=== PATIENT | female | born 1955 | race Caucasian/White ===

== ENCOUNTER 2020-02-29 10:57 | Outpatient (REF) | payer MEDICARE, SELFPAY ==
[2020-02-29 14:13] LABS: Estimated Average Glucose 154 mg/dL
[2020-02-29 14:29] LABS: Alanine Aminotransferase 70 U/L (0-31); Anion Gap 16 (12-20); Aspartate Amino Transferase 68 U/L (5-31); Blood Urea Nitrogen 12 mg/dL (9-16); Calcium 9.9 mg/dL (8.4-10.2); Carbon Dioxide 29 mmol/L (22-29); Chloride 102 mmol/L (96-108); Cholesterol 245 mg/dL; Estimated Glomerular Filt Rate > 60; Glucose Fasting 151 mg/dL (60-99); HDL Cholesterol 85 mg/dL; LDL Cholesterol Calculated 133 mg/dl; Potassium 5.1 mmol/l (3.3-5.1); Sodium 142 mmol/L (135-145); Triglycerides 138 mg/dL
[2020-02-29 14:49] LABS: Vitamin D 25-OH Total 64.9 ng/mL (>30)
[2020-02-29 15:21] LABS: Creatinine Urine 85.09 mg/dL; Microalbum/Creatinine Ratio Ur 42.3 ug/mg cr
== END 2020-02-29 10:58 | disposition home or self-care (01) ==
LOC: HO.HMGCLDS 10:57
PROVIDERS: PCP Internal Medicine; Visit Provider Internal Medicine
DX: I10 Essential (primary) hypertension (principal); E11.29 Type 2 diabetes mellitus with other diabetic kidney complication; E78.2 Mixed hyperlipidemia; R80.9 Proteinuria, unspecified; Z78.0 Asymptomatic menopausal state
CPT/HCPCS: 36415; 80048; 80061; 82043; 82306; 83036; 84450; 84460

== ENCOUNTER 2020-06-12 10:46 | Outpatient (REF) | payer MEDICARE, OTHER, SELFPAY ==
[2020-06-12 14:32] LABS: Estimated Average Glucose 157 mg/dL; Hemoglobin A1c % 7.1 %
[2020-06-12 14:38] LABS: Alanine Aminotransferase 56 U/L (0-31); Anion Gap 17 (12-20); Aspartate Amino Transferase 56 U/L (5-31); Blood Urea Nitrogen 13 mg/dL (9-16); Calcium 9.8 mg/dL (8.4-10.2); Carbon Dioxide 26 mmol/L (22-29); Chloride 100 mmol/L (96-108); Cholesterol 251 mg/dL; Estimated Glomerular Filt Rate > 60; Glucose Fasting 171 mg/dL (60-99); HDL Cholesterol 76 mg/dL; LDL Cholesterol Calculated 133 mg/dl; Potassium 4.4 mmol/L (3.3-5.1); Sodium 139 mmol/L (135-145); Triglycerides 211 mg/dL
[2020-06-12 15:01] LABS: Creatinine Urine 128.54 mg/dL; Microalbum/Creatinine Ratio Ur 68.4 ug/mg cr; Vitamin D 25-OH Total 69.6 ng/mL (>30)
== END 2020-06-12 10:47 | disposition home or self-care (01) ==
LOC: HO.HMGCLDS 10:46
PROVIDERS: PCP Internal Medicine; Visit Provider Internal Medicine
DX: E11.9 Type 2 diabetes mellitus without complications (principal); E78.5 Hyperlipidemia, unspecified; I10 Essential (primary) hypertension; Z78.0 Asymptomatic menopausal state
CPT/HCPCS: 36415; 80048; 80061; 82043; 82306; 83036; 84450; 84460

== ENCOUNTER → 2020-07-08 15:12 | Outpatient (BNVA) | payer MEDICARE, OTHER, SELFPAY | PROVIDERS: Visit Provider Obstetrics & Gynecology | DX: N39.3 Stress incontinence (female) (male) (principal) | CPT/HCPCS: 99202 ==

== ENCOUNTER 2020-10-20 16:13 | Outpatient (REF) | payer MEDICARE, OTHER, SELFPAY ==
--- NOTE | ~2020-10-20 | MM_ITS ---
EXAMINATION: MM SCREENING DIGITAL BREAST TOMOSYNTHESIS, BILATERAL CLINICAL INFORMATION: Screening. Asymptomatic. Left breast cancer 2007. COMPARISON: Mammography: 10/15/2019, 08/23/2017, 02/06/2016, 11/25/2014, 11/08/2014 TECHNIQUE: Digital breast tomosynthesis is performed in both the craniocaudal and mediolateral oblique views along with computer-aided detection (CAD). Synthesized 2D images are generated from the tomosynthesis. Additional exaggerated right CC view is provided. FINDINGS: There are scattered areas of fibroglandular density (ACR BI-RADS breast composition Category b). There are no significant masses, abnormal calcifications, or other abnormalities. There are scattered bilateral ductal secretory calcifications, slightly increased in number over time. Parenchymal pattern is similar to prior exam. There is stable nodularity central 5:00 right breast. No developing density. The axilla are unremarkable. MM/MM tomosynthesis screening BI IMPRESSION: No significant changes from prior studies. ASSESSMENT: BI-RADS 2: Benign RECOMMENDATION: Routine annual mammography screening. This patient's information was entered into a reminder system with a target due date for their next mammogram.
== END 2020-10-20 16:14 | disposition home or self-care (01) ==
LOC: HO.MAMMO 16:13
PROVIDERS: PCP Internal Medicine; Visit Provider Internal Medicine
DX: Z12.31 Encounter for screening mammogram for malignant neoplasm of breast (principal)
CPT/HCPCS: 77063; 77067

== ENCOUNTER 2020-11-22 16:16 | Outpatient (REF) | payer MEDICARE, OTHER, SELFPAY ==
[2020-11-22 16:28] LABS: Appearance Urine CLEAR; Color Urine YELLOW; Glucose Urine UA 500 MG/DL (NEG); Leukocyte Esterase Urine NEG (NEG); Nitrite Urine NEG (NEG); PH 5.5 (5.0-8.0); Specific Gravity - Urine 1.025 (1.005-1.025); UACC Culture Trigger NO; Urine Blood NEG (NEG); Urine Ketones NEG (NEG); Urine Protein 1+ MG/DL (NEG-TRACE)
[2020-11-22 16:42] LABS: Squamous Epithelial Cell Urine 2+ /LPF; UACC CULT YES
[2020-11-22 16:43] LABS: Bacteria Urine 2+ /LPF; RBC Urine 0-2 /HPF (0); WBC Clumps Urine NOTED
== END 2020-11-22 16:17 | disposition home or self-care (01) ==
LOC: HO.LNP 16:16
PROVIDERS: Visit Provider Physician Assistant Medical
DX: N20.0 Calculus of kidney (principal); R30.0 Dysuria
CPT/HCPCS: 81001; 87086; 87088; 87186

== ENCOUNTER 2021-03-18 08:40 | Outpatient (REF) | payer MEDICARE, OTHER, SELFPAY ==
[2021-03-18 11:34] LABS: Appearance Urine TURBID; Color Urine YELLOW; Glucose Urine UA NEG (NEG); Leukocyte Esterase Urine NEG (NEG); Nitrite Urine POS (NEG); PH 5.5 (5.0-8.0); Specific Gravity - Urine >= 1.030 (1.005-1.025); UACC Culture Trigger YES; Urine Blood NEG (NEG); Urine Ketones NEG (NEG); Urine Protein NEG (NEG-TRACE)
[2021-03-18 11:47] LABS: Alanine Aminotransferase 45 U/L (0-31); Anion Gap 16 (12-20); Aspartate Amino Transferase 39 U/L (5-31); Blood Urea Nitrogen 17 mg/dL (9-16); Calcium 10.2 mg/dL (8.4-10.2); Carbon Dioxide 27 mmol/L (22-29); Chloride 102 mmol/L (96-108); Cholesterol 212 mg/dL; Estimated Glomerular Filt Rate > 60; Glucose Fasting 158 mg/dL (60-99); HDL Cholesterol 62 mg/dL; LDL Cholesterol Calculated 108 mg/dl; Sodium 140 mmol/L (135-145); Triglycerides 210 mg/dL
[2021-03-18 11:50] LABS: Estimated Average Glucose 143 mg/dL; Hemoglobin A1c % 6.6 %
[2021-03-18 12:03] LABS: RBC Urine 0 /HPF (0); Squamous Epithelial Cell Urine TRACE /LPF; WBC Urine 0 /HPF (0-4)
[2021-03-18 12:04] LABS: Amorphous Sediment Urine 4+ /LPF
== END 2021-03-18 08:41 | disposition home or self-care (01) ==
LOC: HO.HMGCLDS 08:40
PROVIDERS: Physician Assistant Medical; PCP Internal Medicine; Visit Provider Internal Medicine
DX: E11.65 Type 2 diabetes mellitus with hyperglycemia (principal); E78.5 Hyperlipidemia, unspecified; I10 Essential (primary) hypertension; N20.0 Calculus of kidney
CPT/HCPCS: 36415; 80048; 80061; 81001; 82043; 83036; 84450; 84460; 87086; 87088; 87186

== ENCOUNTER 2021-05-13 10:26 | Outpatient (REF) | payer MEDICARE, OTHER, SELFPAY ==
--- NOTE | ~2021-05-13 | XR_ITS ---
EXAMINATION: XR LUMBOSACRAL SPINE WITH OBLIQUES CLINICAL INFORMATION: Low back pain COMPARISON: Previous x-ray July 2008 TECHNIQUE: AP, both oblique, and lateral views of the lumbar spine. Lateral view of the lumbosacral junction. FINDINGS: Bone alignment is normal. No fracture or dislocation is seen. There is degenerative disc disease at L5-S1. There is lower lumbar spine facet arthritis. No pars defect is seen. There is evidence of atherosclerotic disease. XR/XR lumbar spine 4V min IMPRESSION: Degenerative disc disease at L5-S1 and lower lumbar spine facet arthritis.
--- NOTE | ~2021-05-13 | XR_ITS ---
EXAMINATION: XR BILATERAL HIPS CLINICAL INFORMATION: Right hip pain COMPARISON: Previous x-ray August TECHNIQUE: 2 views views of each hip were obtained. FINDINGS: Right: Bone alignment is normal. No fracture or dislocation is seen. There is arthritis at the right hip joint with joint space narrowing and osteophyte formation. Soft tissues are unremarkable. Left hip: Bone alignment is normal. No fracture or dislocation is seen. The joint space is normal. Soft tissues are normal XR/XR hips SANDRA min 3V IMPRESSION: Right hip arthritis. Normal left hip.
[2021-05-13 11:59] LABS: Estimated Average Glucose 148 mg/dL; Hemoglobin A1c % 6.8 %
[2021-05-13 12:18] LABS: Alanine Aminotransferase 72 U/L (0-31); Anion Gap 17 (12-20); Aspartate Amino Transferase 64 U/L (5-31); Blood Urea Nitrogen 11 mg/dL (9-16); Calcium 9.9 mg/dL (8.4-10.2); Carbon Dioxide 25 mmol/L (22-29); Chloride 102 mmol/L (96-108); Cholesterol 182 mg/dL; Estimated Glomerular Filt Rate > 60; Glucose Fasting 148 mg/dL (60-99); HDL Cholesterol 65 mg/dL; LDL Cholesterol Calculated 91 mg/dl; Potassium 4.6 mmol/L (3.3-5.1); Sodium 139 mmol/L (135-145); Triglycerides 134 mg/dL
[2021-05-14 14:27] LABS: Vitamin D 25-OH Total 48.1 ng/mL (>30)
== END 2021-05-13 10:27 | disposition home or self-care (01) ==
LOC: HO.HMGCX 10:26
PROVIDERS: PCP Internal Medicine; Visit Provider Internal Medicine
DX: M54.50 Low back pain, unspecified (principal); M25.551 Pain in right hip; N95.9 Unspecified menopausal and perimenopausal disorder; G89.29 Other chronic pain; I10 Essential (primary) hypertension; E78.5 Hyperlipidemia, unspecified; E11.65 Type 2 diabetes mellitus with hyperglycemia
CPT/HCPCS: 36415; 72110; 73522; 80048; 80061; 82306; 83036; 84450; 84460

== ENCOUNTER 2021-05-21 08:39 | Outpatient (REF) | payer MEDICARE, OTHER, SELFPAY ==
--- NOTE | ~2021-05-21 | XR_ITS ---
EXAMINATION: XR PELVIS CLINICAL INFORMATION: Pain. COMPARISON: Radiographs dated 05/13/2001. TECHNIQUE: AP view of the pelvis. FINDINGS: There is bony demineralization. There is moderately severe narrowing of the superior right acetabular joint space, with articular surface irregularity, subchondral sclerosis and peripheral osteophyte formation. The left acetabular joint space shows mild medial narrowing of narrowing and mild subchondral sclerosis. There is slight peripheral osteophyte formation of the left acetabular roof. The femoral heads are smooth. There is no fracture or dislocation. The bilateral sacroiliac joints appear intact. The pubic symphysis is intact. There are pelvic phleboliths. XR/XR pelvis 1-2V IMPRESSION: There are degenerative changes of the bilateral hips, moderately severe on the right and mild on the left. No fracture or dislocation is seen.
== END 2021-05-21 08:40 | disposition home or self-care (01) ==
LOC: HO.HOSX 08:39
PROVIDERS: Visit Provider Orthopaedic Surgery
DX: M16.11 Unilateral primary osteoarthritis, right hip (principal); E11.9 Type 2 diabetes mellitus without complications
CPT/HCPCS: 72170; 99202

== ENCOUNTER → 2021-07-14 12:43 | Outpatient (BNVA) | payer MEDICARE, OTHER, SELFPAY | PROVIDERS: PCP Internal Medicine; Visit Provider Orthopaedic Surgery | DX: Z13.89 Encounter for screening for other disorder (principal) ==

== ENCOUNTER 2021-07-16 14:11 | Outpatient (REF) | payer MEDICARE, OTHER, SELFPAY ==
[2021-07-16 16:38] LABS: MANUAL DIFF FLAG NO
[2021-07-16 16:42] LABS: Basophils Absolute Auto 0.1 X10*3/uL (0.0-0.2); Basophils Percent Auto 0.8 % (0-2); Eosinophils Absolute Auto 0.2 X10*3/uL (0.0-0.4); Eosinophils Percent Auto 1.4 % (0-4); Hematocrit 44.2 % (37.0-47.0); Hemoglobin 14.5 g/dl (12.0-16.0); Imm Gran Abs Auto 0.07 X10*3/uL (0.00-0.03); Imm Gran Pct Auto 0.5 % (0.0-0.4); Lymphocytes Absolute Auto 2.8 X10*3/uL (1.2-4.9); Lymphocytes Percent Auto 20.5 % (20-40); Mean Corpuscular HGB Conc 32.8 g/dl (31.0-35.0); Mean Corpuscular Hemoglobin 31.8 pg (27.0-33.0); Mean Corpuscular Volume 96.9 fL (80.0-98.0); Mean Platelet Volume 10.5 fL (9.4-12.3); Monocytes Absolute Auto 1.2 X10*3/uL (0.1-1.2); Monocytes Percent Auto 8.5 % (2-11); Neutrophils Absolute Auto 9.5 x10*3/uL (2.0-8.3); Neutrophils Percent Auto 68.3 % (45-73); Platelet Count 425 X10*3/uL (160-400); Red Blood Count 4.56 X10*6/uL (4.20-5.50); Red Cell Distribution Width 13.2 % (11.0-16.0); White Blood Count 13.9 X10*3/uL (4.8-10.8)
[2021-07-16 16:52] LABS: Anion Gap 17 (12-20); Blood Urea Nitrogen 13 mg/dL (9-16); Calcium 10.3 mg/dL (8.4-10.2); Carbon Dioxide 25 mmol/L (22-29); Chloride 102 mmol/L (96-108); Estimated Glomerular Filt Rate > 60; Glucose Random 183 mg/dL (60-115); Potassium 4.3 mmol/L (3.3-5.1); Sodium 140 mmol/L (135-145)
== END 2021-07-16 14:12 | disposition home or self-care (01) ==
LOC: HO.HMGCLDS 14:11
PROVIDERS: PCP Internal Medicine; Visit Provider Orthopaedic Surgery
DX: Z01.812 Encounter for preprocedural laboratory examination (principal)
CPT/HCPCS: 36415; 80048; 85025

== ENCOUNTER 2021-07-28 | Outpatient (REF) | payer MEDICARE, OTHER, SELFPAY ==
[2021-07-28 12:11] VITALS: BP 147/77; PULSE 86; RESP 16; O2SAT 96; BMI 33.8
--- NOTE | 2021-07-28 12:37 | P.CONAN_ITS ---
HPI - Anesthesia Eval Consult details Narrative: 65yo F for Right Hip Total Replacement Cardiac referral by PCP for new LBBB PMFSH Active Problems Active Problems: All Active Problems (Updated 07/28/21 @ 12:31 by Krystyna Patino, RN) Cystocele (Acute) WINDY (stress urinary incontinence, female) (Acute) Nephrolithiasis (Acute) Left bundle branch block (LBBB) (Acute) Pre-operative cardiovascular examination (Acute) Arthritis of right hip (Acute) Prolapse of female pelvic organs (Acute) Wrist fracture, right (Acute) Type 2 diabetes mellitus without complication, with no history of insulin use (Acute) Essential hypertension (Acute) Glaucoma (Acute) Pulmonary nodule, right (Acute) Lobular breast cancer (Acute) Dyslipidemia (Acute) GERD (gastroesophageal reflux disease) (Acute) Past Medical History Medical History (Updated 07/28/21 @ 12:49 by Krystyna Patino, RN) Arthritis of right hip Diabetes mellitus with hyperglycemia, without long-term current use of insulin Dyslipidemia Dysuria Encounter for annual wellness visit (AWV) in Medicare patient Essential hypertension GERD (gastroesophageal reflux disease) Glaucoma Left bundle branch block (LBBB) Lobular breast cancer PONV (postoperative nausea and vomiting) Posterior vitreous detachment Pre-operative cardiovascular examination Prolapse of female pelvic organs Pulmonary nodule, right Seasonal allergies Type 2 diabetes mellitus without complication, with no history of insulin use Wrist fracture, right Family History Family History Father Diabetes mellitus Sister Lung cancer Family history of problems with anesthesia: No Surgical History Surgical History (Updated 07/28/21 @ 12:03 by Krystyna Patino RN) H/O colectomy History of appendectomy History of carpal tunnel release History of tubal ligation Hx of colonoscopy S/P breast lumpectomy History of Problems with Anesthesia: Yes (PONV) Social History Social History Housing: House Housing Other:: Trailer Are you a primary manager critical care unit to a significant other at home: No Do you presently have visiting nurse or other home services: No Alcohol intake: current Alcohol intake frequency: holidays/special occasions only Patient Tobacco Use Status: Current everyday Tobacco user Tobacco use type: Cigarette Cigarettes Per Day: 5 Years Smoked: 40 e-Cigarette/Vaping Use: Never Used Second Hand Smoke Exposure: Yes ( but he goes outside to smoke) service: No Current occupational status: retired Gender identity: Female Cognitive needs: No Hearing needs: No Vision needs: No Narrative Narrative: No recent illness No CP/SOB within activity very limited by pain Meds Allergies Allergy/AdvReac Type Severity Reaction Status Date / Time ibuprofen [IBUPROFEN] Allergy Severe HIVES, Verified 07/28/21 12:04 vomiting blood, itchiness metronidazole [Flagyl] Allergy Severe hives, Verified 07/28/21 12:04 itching morphine [MORPHINE] Allergy Severe JITTERY, Verified 07/28/21 12:04 tremors, hives, rash adhesive tape [Adhesive Tape] Allergy Mild RASH Verified 07/28/21 12:04 flaxseed [FLAXSEED] Allergy Mild FELT Verified 07/28/21 12:04 JITTERY latex [Latex] Allergy Mild RASH Verified 07/28/21 12:04 Penicillins Allergy Mild RASH/THROAT Verified 07/28/21 12:04 SWELLING Heparin (Porcine) in NaCl Allergy Severe hives, Uncoded 07/28/21 12:04 itchy Home Medications Medication Instructions Recorded Confirmed Last Taken Type aspirin 81 mg tablet,delayed 81 mg PO DAILY 06/13/20 07/28/21 Unknown History release (Adult Low Dose Aspirin) metformin 500 mg tablet 500 mg PO BID tab 07/27/21 07/28/21 Unknown History atorvastatin 10 mg tablet 10 mg PO BEDTIME 07/28/21 07/28/21 Unknown History gabapentin 300 mg capsule 300 mg PO BEDTIME 07/28/21 07/28/21 Unknown History omeprazole 20 mg capsule,delayed 20 mg PO DAILY 07/28/21 07/28/21 Unknown History release Exam Exam Date and Time: July 28, 2021 1237 Height,Weight and Vital Signs: Height 5 ft 2 in Weight 83.915 kg Last Vital Signs Pulse 86 07/28/21 12:11 Resp 16 07/28/21 12:11 BP 147/77 H 07/28/21 12:11 Pulse Ox 96 07/28/21 12:11 Pertinent Lab Results Pertinent Lab Results: Laboratory Tests 07/16/21 07/16/21 15:20 15:20 WBC 13.9 H Hgb 14.5 Hct 44.2 Plt Count 425 H Sodium 140 Potassium 4.3 Chloride 102 Carbon Dioxide 25 BUN 13 Creatinine 0.80 Narrative Narrative: EKG 07/2021 NSR @ 91 LBBB Airway Mallampati Class: II TM Dist: >3cm Neck ROM: Full Denture: Upper and Lower Heart: RRR Lungs: CTAB Assessment and Plan Assessment Anesthesia Assessment: Anesthesia Plan Discussed, Smoking Cess. Discussed and PAT Visit Final Anesthetic Review Family History of Problems with Anesthesia: No History of Problems with Anesthesia: Yes (PONV)
[2021-07-28 14:40] LABS: MRSA Nasal PCR NEGATIVE (Negative); SA Nasal PCR NEGATIVE (Negative)
== END 2021-07-28 00:01 ==
LOC: HO.PAT
PROVIDERS: Nurse Practitioner; PCP Internal Medicine; Visit Provider Orthopaedic Surgery
DX: Z01.818 Encounter for other preprocedural examination (principal); M16.11 Unilateral primary osteoarthritis, right hip
CPT/HCPCS: 86850; 86900; 86901; 87640; 87641

== ENCOUNTER 2021-08-18 11:15 | Outpatient (REF) | payer MEDICARE, OTHER, SELFPAY ==
[2021-08-18 14:22] LABS: Alanine Aminotransferase 47 U/L (0-31); Aspartate Amino Transferase 43 U/L (5-31); Cholesterol 199 mg/dL; HDL Cholesterol 84 mg/dL; LDL Cholesterol Calculated 86 mg/dl; Triglycerides 149 mg/dL
== END 2021-08-18 11:16 | disposition home or self-care (01) ==
LOC: HO.HMGCLDS 11:15
PROVIDERS: Visit Provider Internal Medicine
DX: E11.9 Type 2 diabetes mellitus without complications (principal); E78.5 Hyperlipidemia, unspecified; I10 Essential (primary) hypertension
CPT/HCPCS: 36415; 80061; 84450; 84460

== ENCOUNTER → 2021-08-26 08:35 | Outpatient (BNVA) | payer MEDICARE, OTHER, SELFPAY | PROVIDERS: PCP Internal Medicine; Referring Provider Internal Medicine; Visit Provider Internal Medicine Cardiovascular Disease | DX: Z01.810 Encounter for preprocedural cardiovascular examination (principal); I44.7 Left bundle-branch block, unspecified | CPT/HCPCS: 99202 ==

== ENCOUNTER 2021-08-27 08:30 | Outpatient (RCR) | payer MEDICARE, OTHER, SELFPAY | END 2022-01-18 11:54 | disposition home or self-care (01) | LOC: HO.PT 08:30 | PROVIDERS: Visit Provider Physician Assistant | DX: Z96.641 Presence of right artificial hip joint (principal) ==

== ENCOUNTER → 2021-09-01 07:26 | Outpatient (REF) | payer MEDICARE, OTHER, SELFPAY ==
--- NOTE | ~2021-09-01 | NM_ITS ---
Myocardial perfusion study Indication: Preoperative cardiovascular risk stratification with left bundle branch block Technique: The patient was brought in for a Lexiscan perfusion study on 09/01/2021. Patient performed low-level exercise and was injected 0.4 mg of Lexiscan intravenously. Within a minute of injection, 30 mCi of sestamibi was given intravenously. Images were obtained using the SPECT gamma camera interlaced with the gating device. Images were obtained in supine position. Resting perfusion study was performed on 09/02/2021. Patient was administered 30 mCi of sestamibi intravenously at rest. Images were then obtained in supine position. Images obtained with and without CT attenuation. Total DLP 75 mGy-cm. Images were processed with the software and compared side to side in short axis, horizontal long axis and vertical long axis views. Findings: The stress perfusion study showed non attenuated images show normal uptake of radiotracer in all segments of LV myocardium. Attenuation corrected images show moderately reduced uptake in the apex and mildly reduced uptake septum of the LV myocardium. Remainder of the LV myocardium is normally perfused.. The gated study shows mildly reduced LV systolic function with calculated LVEF of 47%. LV cavity is mildly dilated size. The gated study shows normal wall thickening and contraction of segments. Resting study shows non attenuated images show mildly reduced uptake in the apex of the LV myocardium. Gating at rest reveals normal systolic wall motion with ejection fraction at greater than 45 %. The findings are consistent with likely normal myocardial perfusion. NM/NM sarah perf SPECT rest & str Impression: 1. Myocardial perfusion imaging study shows likely normal myocardial perfusion 2. Gated LVEF is 47% 3. Transient ischemic dilatation not present EKG is nondiagnostic for ischemia
--- NOTE | 2021-09-01 07:34 | CA_ITS ---
Acquisition Time: 2021-09-01 08:21:38 Total Exercise Time: 00:02:00 Test Indications: Abnormal ECG Medications: ATORVASTATIN DILTIAZEM GABAPENTIN LISINOPRIL METFORMIN OMEPRAZOLE Protocol: LEXISCAN Max HR: 112 BPM 73% of Pred: 153 BPM Max BP: 130/080 mmHG Max Work Load: 1.0 METS Pharmacological stress test using Lexiscan while sitting. Pt tolerated well, Denies any CP, mild SOB that resolves in recovery. EKG with LBBB at baseline non diagnostic for ischemia. Nuclear images to follow. Normotensive response to lore. Test reviewed with Dr. Isaacs. Referred By: Flako Isaacs Overread By: Taylor Pederson NP
--- NOTE | 2021-09-01 07:34 | CA_ITS ---
Transthoracic Echocardiogram Patient (Last, First, Middle): Kaila Hampton L Gender: Female Date of : 1955 Age: 66 Procedure Date: 09/01/2021 Procedure Type: Transthoracic Echocardiogram Location: OP Height: 157.48 cm Weight: 83.01 kg BSA: 1.84 m2 Heart Rate: 90 bpm BP: 120 / 70 mmHg Glass Sagger: NICOLE Referring MD: Flako Isaacs MD Job Service Specialist: Flako Isaacs MD Symptoms: Z01.810 - Encounter for preprocedural cardiovascular examination Study Quality: Adequate ECG Rhythm: Sinus Conclusions: - 1. Mildly reduced LV ejection fraction 45-50% with impaired relaxation filling pattern 2. Cardiac valvular Doppler within normal limits 3. No gross pericardial effusion Findings Left Ventricle Normal left ventricular cavity size. There is normal left ventricular wall thickness. The left ventricular systolic function is mildly decreased. The visually estimated ejection fraction is between 45-50%. There is paradoxical septal motion consistent with a left bundle branch block. Spectral Doppler is indicative of an impaired relaxation filling pattern. E/E prime ratio is between 8 and 15 consistent with indeterminate filling pressures. Right Ventricle Normal right ventricular cavity size and systolic function. Atria The left atrium is normal in size. There is no evidence of interatrial shunt. The right atrium was not well visualized. Aortic Valve The aortic valve was not well visualized. There is no aortic valve stenosis. There is no aortic valve regurgitation. Mitral Valve Likely normal mitral valve structure and function. There is trace mitral valve regurgitation. There is no mitral valve stenosis. Pulmonic Valve The pulmonic valve was not well visualized. Tricuspid Valve Likely normal tricuspid valve structure and function. Tricuspid regurgitation envelope is inadequate for calculation of right ventricular systolic pressure. Great Vessels All visible segments of the aorta are normal in size. The pulmonary artery was not well visualized. Venous The inferior vena cava is normal in size. Pericardium/Pleural There is no evidence of pericardial effusion. Prior Study Comparison No prior study available for comparison. Measurements 2D Linear Measurements IVSd: 1.07 0.6-0.9/0.6-1.0 cm LVIDd: 4.87 3.9-5.3/4.2-5.9 cm LVIDd Index: 2.65 2.4-3.2/2.2-3.1 cm/m2 LVIDs: 4.00 2.0-3.6 cm LVPWd: 0.66 0.7-1.1 cm LA Diam: 3.60 2.7-3.8/3.0-4.0 cm LAIDs Index: 1.96 1.5-2.3 cm/m2 LV Mass: 179.28 67-162/88-224 g LV Mass Index: 97.44 43-95/49-115 g/m2 LVOT Diam: 2.10 3.0+(-)1.3 cm 2D Systolic Function EF 4C: 26.80 >55% EF 2C: 37.60 >55% Mitral Valve MV Pk E: 0.59 MV PK A: 1.02 MV Decel Time: 106.00 E/A: 0.60 E'Lateral: 4.90 E'Medial: 2.83 E/E' Med: 20.90 E/E' Lat: 12.10 PHT: 31.00 MVA PHT: 7.10 Decel [place]: 5.58 Aortic Valve AoV Pk Kelvin: 1.50 AoV Mn Kelvin: 1.07 AoV VTI: 0.27 AoV Pk Grad: 9.00 Aov Mn Grad: 5.00 SARAH Cont.VTI: 1.73 LVOT LVOT Pk Kelvin: 0.83 LVOT Mn Kelvin: 0.55 LVOT VTI: 0.13 LVOT Pk Grad: 3.00 LVOT Mn Grad: 1.00 LVOT Diam: 2.10 LVOT Area: 3.46 Diastolic Function MV Pk E: 0.59 MV Pk A: 1.02 E/A: 0.60 E'Medial: 2.83 E/E' Med: 20.90 E' Laterial: 4.90 E/E' Lat: 12.10 Right Ventricle TAPSE (mm): 13.10 TVS' Kelvin: 7.60 Tricuspid Valve RA Press: 3.00 Great Vessels Aorta Sinus of Valsalva: 3.10 2.0-3.5 cm Ao Asc: 2.90 2.1-3.4 cm Pulmonary Valve PV Pk Kelvin: 1.28 Peak PV Grad: 7.00 Updated in Other Vendor System with Status of Final Flako Isaacs MD electronically signed on 09/02/2021 1:36:29 PM with status of Final
== END ==
LOC: HO.CARD 07:26
PROVIDERS: PCP Internal Medicine; Visit Provider Internal Medicine Cardiovascular Disease
DX: Z01.810 Encounter for preprocedural cardiovascular examination (principal)
CPT/HCPCS: 78452; 93017; 93306; A9500; J0280; J2785

== ENCOUNTER → 2021-10-05 09:00 | Outpatient (BNVA) | payer MEDICARE, OTHER, SELFPAY | PROVIDERS: PCP Internal Medicine; Visit Provider Physician Assistant | DX: M16.11 Unilateral primary osteoarthritis, right hip (principal) | CPT/HCPCS: 99212; J2250; J3010 ==

== ENCOUNTER 2021-10-06 07:48 | Inpatient (IN) | payer MEDICARE, OTHER, SELFPAY ==
--- NOTE | 2021-10-05 08:51 | P.CONAN_ITS ---
Documented by User: Natasha Gongora NP 10/05/21 08:59 HPI - Anesthesia Eval Consult details Narrative: 66yo F for Right Hip Total Replacement Cardiac optimized (had abn EKG with PCP) PONV PMFSH Active Problems Active Problems: All Active Problems (Updated 08/20/21 @ 17:59 by Nikki Alberto MD) Cystocele (Acute) WINDY (stress urinary incontinence, female) (Acute) Nephrolithiasis (Acute) Left bundle branch block (LBBB) (Acute) Pre-operative cardiovascular examination (Acute) Arthritis of right hip (Acute) Prolapse of female pelvic organs (Acute) Wrist fracture, right (Acute) Type 2 diabetes mellitus without complication, with no history of insulin use (Acute) Essential hypertension (Acute) Pulmonary nodule, right (Acute) Lobular breast cancer (Acute) Dyslipidemia (Acute) GERD (gastroesophageal reflux disease) (Acute) Past Medical History Medical History Arthritis of right hip Diabetes mellitus with hyperglycemia, without long-term current use of insulin Dyslipidemia Essential hypertension GERD (gastroesophageal reflux disease) Glaucoma Left bundle branch block (LBBB) Lobular breast cancer PONV (postoperative nausea and vomiting) Posterior vitreous detachment Pre-operative cardiovascular examination Prolapse of female pelvic organs Pulmonary nodule, right Seasonal allergies Type 2 diabetes mellitus without complication, with no history of insulin use Wrist fracture, right Family History Family History Father Diabetes mellitus Sister Lung cancer Family history of problems with anesthesia: No Surgical History Surgical History H/O colectomy History of appendectomy History of carpal tunnel release History of tubal ligation Hx of colonoscopy S/P breast lumpectomy History of Problems with Anesthesia: Yes Social History Social History Household Members: None Housing: House Housing Other:: Trailer Are you a primary geriatric personal care aide to a significant other at home: No Do you presently have visiting nurse or other home services: No Alcohol intake: current Alcohol intake frequency: holidays/special occasions only Patient Tobacco Use Status: Current everyday Tobacco user Tobacco use type: Cigarette Cigarettes Per Day: 5.0 Years Smoked: 40 Smoked in Last 30 Days: Yes e-Cigarette/Vaping Use: Never Used Patient Interested in Nicotine Replacement: No Patient Given Instructions on How to Stop Smoking: No Second Hand Smoke Exposure: Yes Use of substances other than those prescribed or required for medical reasons: No Currently Displaying Signs/Symptoms of Drug Intoxication Withdrawal: No Have you been hit, kicked, punched, or otherwise hurt by someone within the past year? If so, by whom?: No Do you feel safe in your current relationship?: Yes Is there a partner from a previous relationship who is making you feel unsafe now?: No Are you made to feel afraid or neglected: No Are you DNR?: No Advance Directives: No Advance Directives Information Provided: No Advance Directives on File: No Do you have thoughts of harming others: None Do you have a plan to hurt others: No Plan Recently lost weight without trying: Yes How much weight loss: 2-13 pounds Eating poorly because of decreased appetite: No Nutrition screen score: 3 Nutrition Risks: No Nutritional Risk Patient : No : No Poor oral hygiene: No service: No Current occupational status: retired Gender identity: Female Cognitive needs: No Hearing needs: No Vision needs: No Meds Allergies Allergy/AdvReac Type Severity Reaction Status Date / Time ibuprofen [IBUPROFEN] Allergy Severe HIVES, Verified 10/05/21 09:30 vomiting blood, itchiness metronidazole [Flagyl] Allergy Severe hives, Verified 10/05/21 09:30 itching morphine [MORPHINE] Allergy Severe JITTERY, Verified 10/05/21 09:30 tremors, hives, rash adhesive tape [Adhesive Tape] Allergy Mild RASH Verified 10/05/21 09:30 flaxseed [FLAXSEED] Allergy Mild FELT Verified 10/05/21 09:30 JITTERY latex [Latex] Allergy Mild RASH Verified 10/05/21 09:30 Penicillins Allergy Mild RASH/THROAT Verified 10/05/21 09:30 SWELLING Heparin (Porcine) in NaCl Allergy Severe hives, Uncoded 10/05/21 09:30 itchy Home Medications Medication Instructions Recorded Confirmed Last Taken Type metformin 500 mg tablet 500 mg PO BID 07/27/21 10/06/21 10/05/21 History atorvastatin 10 mg tablet 10 mg PO BEDTIME 07/28/21 10/06/21 10/05/21 History gabapentin 300 mg capsule 300 mg PO BEDTIME 07/28/21 10/06/21 10/05/21 History omeprazole 20 mg capsule,delayed 20 mg PO DAILY@0630 07/28/21 10/06/21 10/06/21 History release diltiazem HCl 180 mg 180 mg PO DAILY 10/06/21 10/06/21 10/06/21 History capsule,extended release 24 hr, controlled (DILT-XR) lisinopril 5 mg tablet 5 mg PO DAILY 10/06/21 10/06/21 10/05/21 History Exam Exam Date and Time: October 05, 2021 0851 Pertinent Lab Results Pertinent Lab Results: Laboratory Tests 07/16/21 07/16/21 15:20 15:20 WBC 13.9 H Hgb 14.5 Hct 44.2 Plt Count 425 H Sodium 140 Potassium 4.3 Chloride 102 Carbon Dioxide 25 BUN 13 Creatinine 0.80 Narrative Narrative: EKG NSR @ 91 LBBB ECHO 08/2021 Conclusions: - 1.? Mildly reduced LV ejection fraction 45-50% with impaired ? relaxation filling pattern ? 2.? Cardiac valvular Doppler within normal limits? 3.? No gross pericardial effusion? ? NM sarah perf SPECT rest & str 08/2021 Impression: ? 1.? Myocardial perfusion imaging study shows likely normal myocardial perfusion 2.? Gated LVEF is 47% 3. Transient ischemic dilatation not present ? EKG is nondiagnostic for ischemia Assessment and Plan Assessment Anesthesia Assessment: Chart Reviewed Final Anesthetic Review Family History of Problems with Anesthesia: No History of Problems with Anesthesia: Yes Documented by User: Perfecto Rodriguez MD 10/06/21 16:10 [facility] Past Medical History Medical History Arthritis of right hip Diabetes mellitus with hyperglycemia, without long-term current use of insulin Dyslipidemia Essential hypertension GERD (gastroesophageal reflux disease) Glaucoma Left bundle branch block (LBBB) Lobular breast cancer PONV (postoperative nausea and vomiting) Posterior vitreous detachment Pre-operative cardiovascular examination Prolapse of female pelvic organs Pulmonary nodule, right Seasonal allergies Type 2 diabetes mellitus without complication, with no history of insulin use Wrist fracture, right Family History Family History Father Diabetes mellitus Sister Lung cancer Surgical History Surgical History H/O colectomy History of appendectomy History of carpal tunnel release History of tubal ligation Hx of colonoscopy S/P breast lumpectomy Social History Social History Household Members: None Housing: House Housing Other:: Trailer Are you a primary geriatric personal care aide to a significant other at home: No Do you presently have visiting nurse or other home services: No Alcohol intake: current Alcohol intake frequency: holidays/special occasions only Patient Tobacco Use Status: Current everyday Tobacco user Tobacco use type: Cigarette Cigarettes Per Day: 5.0 Years Smoked: 40 Smoked in Last 30 Days: Yes e-Cigarette/Vaping Use: Never Used Patient Interested in Nicotine Replacement: No Patient Given Instructions on How to Stop Smoking: No Second Hand Smoke Exposure: Yes Use of substances other than those prescribed or required for medical reasons: No Currently Displaying Signs/Symptoms of Drug Intoxication Withdrawal: No Have you been hit, kicked, punched, or otherwise hurt by someone within the past year? If so, by whom?: No Do you feel safe in your current relationship?: Yes Is there a partner from a previous relationship who is making you feel unsafe now?: No Are you made to feel afraid or neglected: No Are you DNR?: No Advance Directives: No Advance Directives Information Provided: No Advance Directives on File: No Do you have thoughts of harming others: None Do you have a plan to hurt others: No Plan Recently lost weight without trying: Yes How much weight loss: 2-13 pounds Eating poorly because of decreased appetite: No Nutrition screen score: 3 Nutrition Risks: No Nutritional Risk Patient : No : No Poor oral hygiene: No service: No Current occupational status: retired Gender identity: Female Cognitive needs: No Hearing needs: No Vision needs: No Meds Allergies Allergy/AdvReac Type Severity Reaction Status Date / Time ibuprofen [IBUPROFEN] Allergy Severe HIVES, Verified 10/05/21 09:30 vomiting blood, itchiness metronidazole [Flagyl] Allergy Severe hives, Verified 10/05/21 09:30 itching morphine [MORPHINE] Allergy Severe JITTERY, Verified 10/05/21 09:30 tremors, hives, rash adhesive tape [Adhesive Tape] Allergy Mild RASH Verified 10/05/21 09:30 flaxseed [FLAXSEED] Allergy Mild FELT Verified 10/05/21 09:30 JITTERY latex [Latex] Allergy Mild RASH Verified 10/05/21 09:30 Penicillins Allergy Mild RASH/THROAT Verified 10/05/21 09:30 SWELLING Heparin (Porcine) in NaCl Allergy Severe hives, Uncoded 10/05/21 09:30 itchy Home Medications Medication Instructions Recorded Confirmed Last Taken Type metformin 500 mg tablet 500 mg PO BID 07/27/21 10/06/21 10/05/21 History atorvastatin 10 mg tablet 10 mg PO BEDTIME 07/28/21 10/06/21 10/05/21 History gabapentin 300 mg capsule 300 mg PO BEDTIME 07/28/21 10/06/21 10/05/21 History omeprazole 20 mg capsule,delayed 20 mg PO DAILY@0630 07/28/21 10/06/21 10/06/21 History release diltiazem HCl 180 mg 180 mg PO DAILY 10/06/21 10/06/21 10/06/21 History capsule,extended release 24 hr, controlled (DILT-XR) lisinopril 5 mg tablet 5 mg PO DAILY 10/06/21 10/06/21 10/05/21 History Exam Airway Mallampati Class: III TM Dist: >3cm Neck ROM: Full Denture: Upper and Lower Loose/Missing/Broken Teeth: Yes Heart: S1,S2 Lungs: b/l breath sounds Assessment and Plan Assessment Anesthesia Assessment: Anesthesia Plan Discussed Final Anesthetic Review NPO: Yes ASA Class: III Final Preanesthetic Review: Meds/Allgs Chart Reviewed, Consent Obtained/Reviewed and Anes Risks/Benef Reviewed Patient Risk: Intermediate Procedure Risk: Intermediate Anesthetic Plan Anesthetic Plan: GA Disposition: Standard PACU and Inp. Admit - Standard Bed
[2021-10-06] VITALS (16 sets, daily range): BP systolic 116–139; BP diastolic 58–107; PULSE 68–91; RESP 12–20; TEMP 36.3–37; O2SAT 1–99; BMI 31.6
--- NOTE | ~2021-10-06 | XR_ITS ---
EXAMINATION: XR PELVIS CLINICAL INFORMATION: Evaluate hip prosthesis COMPARISON: None TECHNIQUE: AP view of the pelvis. FINDINGS: 2 views show the presence of a right hip bipolar prosthesis. The true lateral view was not obtained but based on these 2 views, alignment does appear to be anatomic. I do not see fracture or destructive process. Pelvis and left hip intact. XR/XR pelvis 1-2V IMPRESSION: The left hip prosthesis appears intact on this AP view.
[2021-10-06 08:06] LABS: COVID-19 Test Negative (Negative); IDNOW Serial# 16C4AD1C
[2021-10-06] MEDS: oxyCODONE HCl ER 10 MG TAB.ER.12H PO ×2 (08:10→19:58)
[2021-10-06] MEDS: Scopolamine 1.5 MG PATCH.TD.3 TRANSDERMA (08:10)
[2021-10-06 08:21] LABS: Hematocrit 39.3 % (37.0-47.0); Hemoglobin 12.9 g/dl (12.0-16.0)
[2021-10-06 08:30] LABS: Glucose, Whole Blood 140 mg/dL (60-115)
[2021-10-06] MEDS: vancomycin HCL 1,000 MG in 0.9 % Sodium Chloride 250 ML 270 MG IV ×2 (08:35→19:59)
[2021-10-06] MEDS: Lactated Ringers 1,000 ML 100 ML IVCONT ×3 (08:35→19:59)
--- NOTE | 2021-10-06 09:49 | MHC.SHP ---
Pre-Procedural Eval Section A Date of Service: 10/06/21 The patient is an INPATIENT: No Changes since office visit: Yes Patient answered all questions; No Cold of Flu in the past 2 weeks, No New Medical Problems and No Changes in Medication The History & Physical has been completed within 30 days and I have reviewed it.: Yes Section B Chief Complaint: S/P RTHA Allergies: Allergies Allergy/AdvReac Type Severity Reaction Status Date / Time ibuprofen [IBUPROFEN] Allergy Severe HIVES, Verified 10/05/21 09:30 vomiting blood, itchiness metronidazole [Flagyl] Allergy Severe hives, Verified 10/05/21 09:30 itching morphine [MORPHINE] Allergy Severe JITTERY, Verified 10/05/21 09:30 tremors, hives, rash adhesive tape [Adhesive Tape] Allergy Mild RASH Verified 10/05/21 09:30 flaxseed [FLAXSEED] Allergy Mild FELT Verified 10/05/21 09:30 JITTERY latex [Latex] Allergy Mild RASH Verified 10/05/21 09:30 Penicillins Allergy Mild RASH/THROAT Verified 10/05/21 09:30 SWELLING Heparin (Porcine) in NaCl Allergy Severe hives, Uncoded 10/05/21 09:30 itchy Plan I have reviewed the history and physical and performed a pertinent physical examination on my patient. No changes have occurred unless specified.
[2021-10-06 11:18] LABS: MRSA Nasal PCR NEGATIVE (Negative); SA Nasal PCR NEGATIVE (Negative)
--- NOTE | 2021-10-06 11:27 | PM.OP ---
Brief Operative Note Date of Service: 10/06/21 Pre-op diagnosis: Right hip OA Post-op diagnosis: same Procedure: Right TKA Implants: Toi Trident2 #52 with lipped liner and Accolade2 #6 127 deg with - 2.5 36mm ceramic head Surgeon: Odell Lang MD Anesthesia: GETA and local Was an Cork Insulator used for this Procedure?: Yes Cork Insulator: Mick Syed Estimated blood loss (mL): 200 IV fluids (mL): 1,000 Pathology: other Condition: stable Disposition: PACU
--- NOTE | 2021-10-06 13:01 | W.PM.OPN ---
Operative Note Operative Note Date of Service: 10/06/21 Narrative: Date of Service: 10/06/21 Pre-op diagnosis: Right hip OA Post-op diagnosis: same Procedure: Right TKA Implants: [place] Trident2 #52 with lipped liner and Accolade2 #6 127 deg with - 2.5 36mm ceramic head Surgeon: Odell Lang MD Anesthesia: GETA and local Was an Hot Car Operator used for this Procedure?: Yes Hot Car Operator: Mick Syed Estimated blood loss (mL): 200 IV fluids (mL): 1,000 Pathology: other Condition: stable Disposition: PACU Procedure in detail: Patient was brought into the operating room and placed in the left lateral decubitus position. All bony prominences were well padded and the limb was prepped and draped in standard sterile fashion. Time-out was called to identify proper site procedure proper surgeon IV antibiotics and 1 g of transaxemic acid were administered. I began by making a curvilinear incision over the posterolateral aspect of the greater trochanter. Dissection was taken down to the tensor fascia which was incised in line with the incision and a Charnley retractor was placed. Cautery was used to maintain hemostasis. A werewolf device was also used. The hip was internally rotated and the external rotators were identified. The vessels were cauterized and a full-thickness capsular/external rotator layer was developed starting just proximal to the piriformis. This layer was tagged and a dull Hohmann retractor was placed underneath the neck in the hip was dislocated. . A neck cut was made 1 cm proximal to the lesser trochanter and the head and neck were removed and examined. It was eburnated and measured 46-48 mm on the back table. I started with a 44mm reamer and sequentially reamed up to a size 51 and impacted a 52 cup at approximately 45 degrees of inclination and 25 degrees of version. I then placed a lipped liner and turned my attention to the femur. I identified the piriformis insertion and used this as a starting point for my camiie cutter. The medius tendon was protected with a Hibs retractor. I then used a Charnley awl to identify the canal and a curved curette to remove the lateral bone. I irrigated copiously. I then sequentially broached in the patient's natural version to a size 6 and placed my trial implants. Using a variety of trail heads I took the hip through range of motion. I was very satisfied with the stability and length using a 127 deg and -2.5 36 head. Therefore I removed all instrumentation and copiously irrigated. I placed my final femoral implant and again took the hip through range of motion and was satisfied with the stability and length using the -2.5. The final femoral head implant was impacted in place. I then irrigated for 3 minutes with iodine and placed 1 g of local tranaxemic acid. I then performed a capsular closure with 2.0 fiberwire, Zahra's fascia with 0 Vicryl, subcuticular with 2-0 Vicryl and the skin with kaushal. Patient was placed into a sterile dressing. Patient was extubated brought to the recovery room in stable condition.
--- NOTE | 2021-10-06 13:29 | PHA.MEDREC ---
Pharmacy Consult ? Medication Reconciliation Pharmacy has completed the medication reconciliation. Reviewed med rec done by nursing and verified with claim history.
[2021-10-06] MEDS: oxyCODONE HCl Immed Release 5 MG TABLET 10 MG PO (14:30)
[2021-10-06] MEDS: HYDROmorphone HCl 0.5 MG/0.5 ML SYRINGE 0.25 MG IVPUSH ×2 (14:31→22:31)
[2021-10-06] MEDS: Acetaminophen 325 MG TABLET 650 MG PO (14:31)
--- NOTE | 2021-10-06 15:29 | PC.NURSE ---
Pt alert and oriented x4. Pt admiitted to rm 357 s/P Right hip replacement. Pt c/O of severe pain 8/ to the right hip especially with activity. PRN Oxycodeone, Tylenol and Dilaudid given with good effect. Ice also applied to the right hip surgical site
[2021-10-06 15:45] LABS: Glucose, Whole Blood 139 mg/dL (60-115)
--- NOTE | 2021-10-06 16:33 | P.CONHOSP_ITS ---
History of Present Illness Data of Consult Service Date: 10/06/21 Requesting physician: Odell Lang Primary Care Provider: Nikki Alberto MD [facility] Routine medical consult; 66-year-old female status post right total hip arthroscopy. No acute medical issues in the postoperative. Review of Systems Review of Systems: Pain control adequate Denies chest pain Denies shortness of breath Denies nausea vomiting diarrhea PMFSH Medical History Arthritis of right hip Diabetes mellitus with hyperglycemia, without long-term current use of insulin Dyslipidemia Essential hypertension GERD (gastroesophageal reflux disease) Glaucoma Left bundle branch block (LBBB) Lobular breast cancer PONV (postoperative nausea and vomiting) Posterior vitreous detachment Pre-operative cardiovascular examination Prolapse of female pelvic organs Pulmonary nodule, right Seasonal allergies Type 2 diabetes mellitus without complication, with no history of insulin use Wrist fracture, right Family History Father Diabetes mellitus Sister Lung cancer Surgical History H/O colectomy History of appendectomy History of carpal tunnel release History of tubal ligation Hx of colonoscopy S/P breast lumpectomy Social History Household Members: None Housing: House Housing Other:: Trailer Are you a primary manager managed care to a significant other at home: No Do you presently have visiting nurse or other home services: No Alcohol intake: current Alcohol intake frequency: holidays/special occasions only Patient Tobacco Use Status: Current everyday Tobacco user Tobacco use type: Cigarette Cigarettes Per Day: 5.0 Years Smoked: 40 Smoked in Last 30 Days: Yes e-Cigarette/Vaping Use: Never Used Patient Interested in Nicotine Replacement: No Patient Given Instructions on How to Stop Smoking: No Second Hand Smoke Exposure: Yes Use of substances other than those prescribed or required for medical reasons: No Currently Displaying Signs/Symptoms of Drug Intoxication Withdrawal: No Have you been hit, kicked, punched, or otherwise hurt by someone within the past year? If so, by whom?: No Do you feel safe in your current relationship?: Yes Is there a partner from a previous relationship who is making you feel unsafe now?: No Are you made to feel afraid or neglected: No Are you DNR?: No Advance Directives: No Advance Directives Information Provided: No Advance Directives on File: No Do you have thoughts of harming others: None Do you have a plan to hurt others: No Plan Recently lost weight without trying: Yes How much weight loss: 2-13 pounds Eating poorly because of decreased appetite: No Nutrition screen score: 3 Nutrition Risks: No Nutritional Risk Patient : No : No Poor oral hygiene: No service: No Current occupational status: retired Gender identity: Female Cognitive needs: No Hearing needs: No Vision needs: No Meds Allergies Allergy/AdvReac Type Severity Reaction Status Date / Time ibuprofen [IBUPROFEN] Allergy Severe HIVES, Verified 10/05/21 09:30 vomiting blood, itchiness metronidazole [Flagyl] Allergy Severe hives, Verified 10/05/21 09:30 itching morphine [MORPHINE] Allergy Severe JITTERY, Verified 10/05/21 09:30 tremors, hives, rash adhesive tape [Adhesive Tape] Allergy Mild RASH Verified 10/05/21 09:30 flaxseed [FLAXSEED] Allergy Mild FELT Verified 10/05/21 09:30 JITTERY latex [Latex] Allergy Mild RASH Verified 10/05/21 09:30 Penicillins Allergy Mild RASH/THROAT Verified 10/05/21 09:30 SWELLING Heparin (Porcine) in NaCl Allergy Severe hives, Uncoded 10/05/21 09:30 itchy Active Medications: Current Medications Acetaminophen (Acetaminophen 325 Mg Tablet) 650 mg PO Q6H PRN PRN Reason: Pain, Mild (Pain Scale 1-3) Last Admin: 10/06/21 14:31 Dose: 650 mg Celecoxib (Celecoxib 200 Mg Capsule) 200 mg PO BID BUTCH Docusate Sodium (Docusate Sodium 100 Mg Capsule) 100 mg PO BID BUTCH Fentanyl (Fentanyl Citrate/Pf 100 Mcg/2 Ml Vial) 25 mcg IVPUSH Q5M PRN; Protocol PRN Reason: Pain, Moderate (Pain Scale 4-6 Hydromorphone HCl (Hydromorphone Hcl 0.5 Mg/0.5 Ml Syringe) 0.25 mg IVPUSH Q4H PRN; Protocol PRN Reason: Pain, Severe (Pain Scale 7-10) Last Admin: 10/06/21 14:31 Dose: 0.25 mg Lactated Ringer's (Lr) 1,000 mls @ 100 mls/hr IVCONT .Q10H [facility] Last Admin: 10/06/21 08:35 Dose: 100 mls/hr Promethazine HCl 6.25 mg/ (Sodium Chloride) 50.25 mls @ 201 mls/hr IV ONCE PRN PRN Reason: Nausea and Vomiting Lactated Ringer's (Lr) 1,000 mls @ 100 mls/hr IVCONT .Q10H [facility] Last Admin: 10/06/21 13:27 Dose: 100 mls/hr Vancomycin HCl 1,000 mg/ (Sodium Chloride) 270 mls @ 270 mls/hr IV POSTOP ONE Stop: 10/06/21 20:59 Oxycodone HCl (Oxycodone Hcl Immed Release 5 Mg Tablet) 10 mg PO Q4H PRN PRN Reason: Pain, Moderate (Pain Scale 4-6 Last Admin: 10/06/21 14:30 Dose: 10 mg Oxycodone HCl (Oxycodone Hcl Er 10 Mg Tab.Er.12h) 10 mg PO BID [facility] Pharmacy Consult (Consult Rx Vancomycin Dosing) 1 each MISCELLANE DAILY PRN PRN Reason: Consult order Sodium Chloride (0.9 % Sodium Chloride Flush 3 Ml Syringe) 3 ml IVFLUSH QSHIFT [facility] Home Medications Medication Instructions Recorded Confirmed Last Taken Type metformin 500 mg tablet 500 mg PO BID 07/27/21 10/06/21 10/05/21 History atorvastatin 10 mg tablet 10 mg PO BEDTIME 07/28/21 10/06/21 10/05/21 History gabapentin 300 mg capsule 300 mg PO BEDTIME 07/28/21 10/06/21 10/05/21 History omeprazole 20 mg capsule,delayed 20 mg PO DAILY@0630 07/28/21 10/06/21 10/06/21 History release diltiazem HCl 180 mg 180 mg PO DAILY 10/06/21 10/06/21 10/06/21 History capsule,extended release 24 hr, controlled (DILT-XR) lisinopril 5 mg tablet 5 mg PO DAILY 10/06/21 10/06/21 10/05/21 History Physical Exam Vital Signs and Narrative: Vital Signs: Last Vital Signs Temp 98.1 F 10/06/21 14:55 Pulse 76 10/06/21 14:55 Resp 14 10/06/21 14:55 BP 130/60 10/06/21 14:55 Pulse Ox 93 10/06/21 14:55 O2 Del Method 10/06/21 14:55 O2 Flow Rate 1.0 10/06/21 14:55 BMI result Body Mass Index 31.6 Const: Other: somnolent but arousable (immediate postop) no acute distress Resp: Other: clear to auscultation bilaterally no rales rhonchi or wheezes Cardio: Other: no S4; positive S1-S2; no S3 murmurs rubs or gallops GI: Other: soft nontender nondistended with normoactive bowel sounds Extrem: Other: no edema bilaterally Results Labs CBC and Chem 7: 10/06/21 08:13 Labs: Laboratory Results - last 24 hr 10/06/21 10/06/21 10/06/21 07:43 08:01 08:13 POC Glucose Nasal Screen MRSA (PCR) NEGATIVE Nasal S. aureus Screen NEGATIVE Nasal MRSA/S.aureus Interp SEE NOTE COVID-19 ([facility]) Negative COVID-19 Clin Com See Note Blood Type O Positive Antibody Screen NEGATIVE 10/06/21 10/06/21 08:25 15:32 POC Glucose 140 H 139 H Nasal Screen MRSA (PCR) Nasal S. aureus Screen Nasal MRSA/S.aureus Interp COVID-19 ([facility]) COVID-19 Clin Com Blood Type Antibody Screen Imaging Radiologist's Impressions: Impressions Pelvis X-Ray 10/06/21 13:05 IMPRESSION: The left hip prosthesis appears intact on this AP view. Assessment and Plan (1) Osteoarthritis of right hip: Status: Acute (2) Type 2 diabetes mellitus without complication, with no history of insulin use: Status: Acute (3) Essential hypertension: Status: Acute (4) Dyslipidemia: Status: Acute (5) GERD (gastroesophageal reflux disease): Status: Acute Plan 66-year-old female postop right total hip arthroscopy. No acute medical issues in the immediate postoperative period. 1.S/P BIB - As per Orthopedics 2. Diabetes type 2 - continue metformin at outpatient dosing - cover with lispro correctional scale - adjust as indicated 3. Hypertension - acceptable control presently - continue lisinopril/diltiazem in a.m. - adjust as indicated 4. GERD - continue PPI Will follow DVT prophylaxis as per Ortho
[2021-10-06] MEDS: Gabapentin 300 MG CAPSULE PO (19:58)
[2021-10-06] MEDS: metFORMIN HCl 500 MG TABLET PO (19:58)
[2021-10-06] MEDS: Atorvastatin Calcium 10 MG TABLET PO (19:59)
[2021-10-06] MEDS: Celecoxib 200 MG CAPSULE PO (19:59)
[2021-10-06] MEDS: Docusate Sodium 100 MG CAPSULE PO (20:18)
[2021-10-06 20:29] LABS: Glucose, Whole Blood 172 mg/dL (60-115)
[2021-10-07] VITALS (9 sets, daily range): BP systolic 103–124; BP diastolic 51–77; PULSE 82–102; RESP 15–20; TEMP 36.3–37.2; O2SAT 92–98
[2021-10-07] MEDS: oxyCODONE HCl Immed Release 5 MG TABLET 10 MG PO ×4 (05:35→21:28)
[2021-10-07 05:57] LABS: MANUAL DIFF FLAG NO
[2021-10-07 06:27] LABS: Anion Gap 14 (12-20); Blood Urea Nitrogen 8 mg/dL (9-16); Calcium 8.3 mg/dL (8.4-10.2); Carbon Dioxide 28 mmol/L (22-29); Chloride 101 mmol/L (96-108); Creatinine Clr Calc Pharmacy 77.9; Estimated Glomerular Filt Rate > 60; Glucose Fasting 125 mg/dL (60-99); Potassium 4.4 mmol/L (3.3-5.1); Sodium 139 mmol/L (135-145)
[2021-10-07] MEDS: Lactated Ringers 1,000 ML 100 ML IVCONT ×3 (06:32→21:33)
[2021-10-07] MEDS: Omeprazole 20 MG CAPSULE.DR PO (06:34)
[2021-10-07 06:39] LABS: Basophils Absolute Auto 0.1 X10*3/uL (0.0-0.2); Basophils Percent Auto 0.9 % (0-2); Eosinophils Absolute Auto 0.2 X10*3/uL (0.0-0.4); Eosinophils Percent Auto 2.6 % (0-4); Hematocrit 34.1 % (37.0-47.0); Hemoglobin 10.9 g/dl (12.0-16.0); Imm Gran Abs Auto 0.03 X10*3/uL (0.00-0.03); Imm Gran Pct Auto 0.3 % (0.0-0.4); Lymphocytes Percent Auto 21.4 % (20-40); Mean Corpuscular Hemoglobin 31.4 pg (27.0-33.0); Mean Corpuscular Volume 98.3 fL (80.0-98.0); Mean Platelet Volume 10.4 fL (9.4-12.3); Monocytes Absolute Auto 1.3 X10*3/uL (0.1-1.2); Monocytes Percent Auto 14.3 % (2-11); Neutrophils Absolute Auto 5.6 x10*3/uL (2.0-8.3); Neutrophils Percent Auto 60.5 % (45-73); Platelet Count 281 X10*3/uL (160-400); Red Blood Count 3.47 X10*6/uL (4.20-5.50); Red Cell Distribution Width 14.2 % (11.0-16.0); White Blood Count 9.3 X10*3/uL (4.8-10.8)
--- NOTE | 2021-10-07 07:18 | PM.PNORT ---
Subjective Subjective Date of Service: 10/07/21 Interval history: POD1 s/p RTHA. Patient is resting comfortably in bed. No overnight events. Pain is managed No additional complaints. Physical Exam Vital Signs: Vital Signs: Last Vital Signs Temp 97.3 F 10/07/21 03:19 Pulse 92 10/07/21 03:19 Resp 18 10/07/21 03:19 BP 124/77 10/07/21 03:19 Pulse Ox 92 10/07/21 03:19 O2 Del Method 10/07/21 03:19 O2 Flow Rate 1 10/07/21 03:19 BMI result Body Mass Index 31.6 Const: General: cooperative, healthy appearing and no acute distress Resp: Effort & Inspection: normal respiratory effort and able to speak in complete sentences Cardio: Rate: regular rate Peripheral pulses: Peripheral pulses 2+ throughout GI: Palpation (GI): Soft to palpation Skin: Lesions: no lesions Rashes: no rashes Extrem: Other: Right hip Aquacel is clean, dry, and intact. NVI. Procedures Date of Service Date of Service: 10/07/21 Progress Note: A&P Assessment and plan (1) S/P total right hip arthroplasty: Status: Acute Plan Continue pain mgmnt Begin ASA for dvt ppx begin PT for RTHA Dispo planning-Pending PT eval, pain mgmnt Time Spent With Patient Time: Total time spent is greater than 50% in coordination of care (as documented) at patient's floor/unit and/or counseling patient: Quality Stroke Does the patient have a stroke diagnosis?: No VTE Prior VTE?: No VTE Risk Level:: Medical - moderate - high VTE Device Contraindication: N/A - Device Ordered VTE Drug Contraindication: N/A - Med Ordered
[2021-10-07 07:37] LABS: Glucose, Whole Blood 125 mg/dL (60-115)
[2021-10-07] MEDS: Celecoxib 200 MG CAPSULE PO ×2 (07:48→21:30)
[2021-10-07] MEDS: Docusate Sodium 100 MG CAPSULE PO ×2 (07:48→21:30)
[2021-10-07] MEDS: oxyCODONE HCl ER 10 MG TAB.ER.12H PO ×2 (07:49→21:29)
[2021-10-07] MEDS: metFORMIN HCl 500 MG TABLET PO ×2 (07:49→21:30)
[2021-10-07] MEDS: HYDROmorphone HCl 0.5 MG/0.5 ML SYRINGE 0.25 MG IVPUSH ×2 (07:57→13:36)
--- NOTE | 2021-10-07 08:47 | MHC.CLN ---
NUTRITION DIET CHANGED TO DIABETIC 1800 KCALS. PATIENT WITH DX DM AND TAKES DM MEDS.
--- NOTE | 2021-10-07 09:27 | MHC.CM.PN ---
IMM 10/07/21, EMR REVIEWED, PT ADMITTED S/P R BIB, CM MET W/PT WHO REPORTS SHE LIVES W/HER , IS INDEPENDENT W/CARE, HAS A CANE, WHEELED WALKER, SHOWER CHAIR AT HOME, PT DENIES HOME SERVICES, PT HAS HAD PFIZER X3 AND MODERNA X1 AND VERIFIES RADHA SAAVEDRA IS PCP AND LY NAVA [phone] IS HCP, COPY ON FILE FROM LAST ADMISSION. PT PREFERS TO D/C HOME W/SERVICES (NO PREFERENCE ON VNA) HOWEVER WILL GO TO STR IF RECOMMENDED BY PT.
[2021-10-07] MEDS: Aspirin 325 MG TABLET PO ×2 (09:38→21:29)
[2021-10-07] MEDS: dilTIAZem HCL CD 180 MG CAP.ER.24H PO (09:39)
[2021-10-07] MEDS: lisinopriL 5 MG TABLET PO (09:39)
[2021-10-07 11:48] LABS: Glucose, Whole Blood 151 mg/dL (60-115)
[2021-10-07] MEDS: Insulin Lispro 100 UNIT/ML 3 ML VIAL SUBCUT ×2 (12:10→21:31)
--- NOTE | 2021-10-07 12:12 | P.PNIM_ITS ---
Subjective Subjective Date of Service: 10/07/21 Interval History: doing well overall. No acute issues Review of Systems Pain control adequate Denies chest pain Denies shortness of breath Denies nausea vomiting diarrhea Physical Exam Vital Signs: Vital Signs: Last Vital Signs Temp 98.9 F 10/07/21 11:36 Pulse 93 10/07/21 11:36 Resp 18 10/07/21 11:36 BP 111/58 L 10/07/21 11:36 Pulse Ox 92 10/07/21 11:36 O2 Del Method 10/07/21 11:36 O2 Flow Rate 1 10/07/21 11:36 Oxygen Flow Rate 1 10/07/21 08:24 BMI result Body Mass Index 31.6 Const: Other: somnolent but arousable (immediate postop) no acute distress Resp: Other: clear to auscultation bilaterally no rales rhonchi or wheezes Cardio: Other: no S4; positive S1-S2; no S3 murmurs rubs or gallops GI: Other: soft nontender nondistended with normoactive bowel sounds Extrem: Other: no edema bilaterally Objective Data Active Medications Acetaminophen (Acetaminophen 325 Mg Tablet) 650 mg PO Q6H PRN PRN Reason: Pain, Mild (Pain Scale 1-3) Last Admin: 10/06/21 14:31 Dose: 650 mg Documented By: RODRI Aspirin (Aspirin 325 Mg Tablet) 325 mg PO BID ON LICENSE OF [facility] Last Admin: 10/07/21 09:38 Dose: 325 mg Documented By: LIONEL Atorvastatin Calcium (Atorvastatin Calcium 10 Mg Tablet) 10 mg PO BEDTIME ON LICENSE OF [facility] Last Admin: 10/06/21 19:59 Dose: 10 mg Documented By: IGNACIO Celecoxib (Celecoxib 200 Mg Capsule) 200 mg PO BID ON LICENSE OF [facility] Last Admin: 10/07/21 07:48 Dose: 200 mg Documented By: LIONEL Diltiazem HCl (Diltiazem Hcl Cd 180 Mg Cap.Er.24h) 180 mg PO DAILY UBTCH; Protoc ol Last Admin: 10/07/21 09:39 Dose: 180 mg Documented By: LIONEL Docusate Sodium (Docusate Sodium 100 Mg Capsule) 100 mg PO BID ON LICENSE OF [facility] Last Admin: 10/07/21 07:48 Dose: 100 mg Documented By: LIONEL Fentanyl (Fentanyl Citrate/Pf 100 Mcg/2 Ml Vial) 25 mcg IVPUSH Q5M PRN; Protocol PRN Reason: Pain, Moderate (Pain Scale 4-6 Gabapentin (Gabapentin 300 Mg Capsule) 300 mg PO BEDTIME ON LICENSE OF [facility] Last Admin: 10/06/21 19:58 Dose: 300 mg Documented By: IGNACIO Hydromorphone HCl (Hydromorphone Hcl 0.5 Mg/0.5 Ml Syringe) 0.25 mg IVPUSH Q4H PRN; Protocol PRN Reason: Pain, Severe (Pain Scale 7-10) Last Admin: 10/07/21 07:57 Dose: 0.25 mg Documented By: LIONEL Lactated Ringer's (Lr) 1,000 mls @ 100 mls/hr IVCONT .Q10H ON LICENSE OF [facility] Last Admin: 10/07/21 06:32 Dose: 100 mls/hr Documented By: IGNACIO Promethazine HCl 6.25 mg/ (Sodium Chloride) 50.25 mls @ 201 mls/hr IV ONCE PRN PRN Reason: Nausea and Vomiting Lactated Ringer's (Lr) 1,000 mls @ 100 mls/hr IVCONT .Q10H ON LICENSE OF [facility] Last Admin: 10/07/21 07:50 Dose: Not Given Documented By: LIONEL Non-Admin Reason: IV Running Insulin Human Lispro (Insulin Lispro 100 Unit/Ml 3 Ml Vial) 0 unit SUBCUT QIDACHS ON LICENSE OF [facility]; Protocol Last Admin: 10/07/21 12:10 Dose: 2 unit Documented By: LIONEL Lisinopril (Lisinopril 5 Mg Tablet) 5 mg PO DAILY ON LICENSE OF [facility]; Protocol Last Admin: 10/07/21 09:39 Dose: 5 mg Documented By: LIONEL Metformin HCl (Metformin Hcl 500 Mg Tablet) 500 mg PO BID ON LICENSE OF [facility] Last Admin: 10/07/21 07:49 Dose: 500 mg Documented By: LIONEL Omeprazole (Omeprazole 20 Mg Capsule.) 20 mg PO DAILY@0630 ON LICENSE OF [facility] Last Admin: 10/07/21 06:34 Dose: 20 mg Documented By: IGNACIO Oxycodone HCl (Oxycodone Hcl Immed Release 5 Mg Tablet) 10 mg PO Q4H PRN PRN Reason: Pain, Moderate (Pain Scale 4-6 Last Admin: 10/07/21 09:38 Dose: 10 mg Documented By: LIONEL Oxycodone HCl (Oxycodone Hcl Er 10 Mg Tab.Er.12h) 10 mg PO BID ON LICENSE OF [facility] Last Admin: 10/07/21 07:49 Dose: 10 mg Documented By: LIONEL Pharmacy Consult (Consult Rx Vancomycin Dosing) 1 each MISCELLANE DAILY PRN PRN Reason: Consult order Sodium Chloride (0.9 % Sodium Chloride Flush 3 Ml Syringe) 3 ml IVFLUSH QSHIFT ON LICENSE OF [facility] Last Admin: 10/07/21 07:50 Dose: Not Given Documented By: LIONEL Non-Admin Reason: IV Running Labs CBC & Chem 7: 10/07/21 05:18 10/07/21 05:18 Labs: Laboratory Results - last 24 hr 10/06/21 10/06/21 10/07/21 15:32 20:26 05:18 MCV 98.3 H MCH 31.4 MCHC 32.0 RDW 14.2 Plt Count 281 D MPV 10.4 Immature Gran % (Auto) 0.3 Neut % (Auto) 60.5 Lymph % (Auto) 21.4 [place] % (Auto) 14.3 H Eos % (Auto) 2.6 Baso % (Auto) 0.9 Lymph # (Auto) 2.0 [place] # (Auto) 1.3 H Eos # (Auto) 0.2 Baso # (Auto) 0.1 Abs Immat Gran (auto) 0.03 Absolute Neuts (auto) 5.6 Absolute Nucleated RBC 0.000 Nucleated RBC % (auto) 0.0 Anion Gap Estim Creat Clear Calc Estimated GFR POC Glucose 139 H 172 H Fasting Glucose Calcium 10/07/21 10/07/21 10/07/21 05:18 07:16 11:11 MCV MCH MCHC RDW Plt Count MPV Immature Gran % (Auto) Neut % (Auto) Lymph % (Auto) [place] % (Auto) Eos % (Auto) Baso % (Auto) Lymph # (Auto) [place] # (Auto) Eos # (Auto) Baso # (Auto) Abs Immat Gran (auto) Absolute Neuts (auto) Absolute Nucleated RBC Nucleated RBC % (auto) Anion Gap 14 Estim Creat Clear Calc 77.9 Estimated GFR > 60 POC Glucose 125 H 151 H Fasting Glucose 125 H Calcium 8.3 L D Assessment and Plan (1) S/P total right hip arthroplasty: Status: Acute (2) Type 2 diabetes mellitus without complication, with no history of insulin use: Status: Acute (3) Essential hypertension: Status: Acute (4) GERD (gastroesophageal reflux disease): Status: Acute Plan 66-year-old female postop right total hip arthroscopy. No acute medical issues in the immediate postoperative period. 1.S/P BIB - As per Orthopedics 2. Diabetes type 2 - acceptable control on current therapies - continue metformin at outpatient dosing - cover with lispro correctional scale - adjust as indicated 3. Hypertension - acceptable control presently - continue lisinopril/diltiazem in a.m. - adjust as indicated 4. GERD - continue PPI Will follow DVT prophylaxis as per Ortho Quality Stroke Does the patient have a stroke diagnosis?: No VTE Prior VTE?: No VTE Risk Level:: Medical - moderate - high VTE Device Contraindication: N/A - Device Ordered VTE Drug Contraindication: N/A - Med Ordered
--- NOTE | 2021-10-07 15:36 | MHC.CM.PN ---
CM MET PT TO DISCUSS DISPO AND PT REPORTS SHE IS UNDECIDED ABOUT STR, PT AWARE SHE HAS BED OFFERS AT [facility] AND [facility], PT REPORTS SHE WOULD DECLINE [facility] AND WOULD ACCEPT A BED OFFER AT [facility] HOWEVER WILL DISCUSS W/ TONIGHT. GREGNA ALSO FOLLOWING IN ANTIC PT WILL D/C HOME INSTEAD OF TO STR.
[2021-10-07 15:38] LABS: Glucose, Whole Blood 135 mg/dL (60-115)
--- NOTE | 2021-10-07 16:01 | HO.POSTANES ---
Post Anesthesia Evaluation Post Anesthesia Evaluation Vital Signs: Vital Signs Temp Pulse Resp BP Pulse Ox O2 Del Method O2 Flow Rate 10/07/21 15:36 98.2 F 82 15 110/63 98 Room Air 10/07/21 15:25 97.4 F 90 20 110/69 95 Nasal Cannula 1 10/07/21 11:36 98.9 F 93 18 111/58 L 92 Nasal Cannula 1 10/07/21 09:43 102 H 118/58 L 94 Room Air 10/07/21 08:24 92 Nasal Cannula 10/07/21 07:17 98.7 F 98 18 119/61 92 Nasal Cannula 1 Anesthesia: General LMA Mental Status: Awake Pain Control: Satisfactory Nausea/Vomiting: None Hydration: Adequate Anesthesia-Related Issues: No Anes. Related Issues
[2021-10-07 19:22] LABS: Glucose, Whole Blood 180 mg/dL (60-115)
[2021-10-07] MEDS: Gabapentin 300 MG CAPSULE PO (21:30)
[2021-10-07] MEDS: Atorvastatin Calcium 10 MG TABLET PO (21:31)
[2021-10-08] MEDS: Lactated Ringers 1,000 ML 100 ML IVCONT ×2 (00:32→08:01)
[2021-10-08] MEDS: oxyCODONE HCl Immed Release 5 MG TABLET 10 MG PO ×2 (01:51→05:48)
[2021-10-08 03:38] VITALS: BP 108/56; PULSE 98; RESP 18; TEMP 37.4; O2SAT 94
[2021-10-08] MEDS: Omeprazole 20 MG CAPSULE.DR PO (05:48)
[2021-10-08 05:50] LABS: Basophils Absolute Auto 0.1 X10*3/uL (0.0-0.2); Basophils Percent Auto 0.4 % (0-2); Eosinophils Absolute Auto 0.2 X10*3/uL (0.0-0.4); Eosinophils Percent Auto 1.4 % (0-4); Hematocrit 32.6 % (37.0-47.0); Hemoglobin 10.6 g/dl (12.0-16.0); Imm Gran Abs Auto 0.06 X10*3/uL (0.00-0.03); Imm Gran Pct Auto 0.5 % (0.0-0.4); Lymphocytes Absolute Auto 2.9 X10*3/uL (1.2-4.9); Lymphocytes Percent Auto 24.4 % (20-40); MANUAL DIFF FLAG SCAN; Mean Corpuscular HGB Conc 32.5 g/dl (31.0-35.0); Mean Corpuscular Hemoglobin 31.8 pg (27.0-33.0); Mean Corpuscular Volume 97.9 fL (80.0-98.0); Mean Platelet Volume 9.7 fL (9.4-12.3); Monocytes Absolute Auto 1.7 X10*3/uL (0.1-1.2); Monocytes Percent Auto 14.6 % (2-11); Neutrophils Absolute Auto 6.9 x10*3/uL (2.0-8.3); Neutrophils Percent Auto 58.7 % (45-73); Platelet Count 264 X10*3/uL (160-400); Red Blood Count 3.33 X10*6/uL (4.20-5.50); Red Cell Distribution Width 13.9 % (11.0-16.0); SCAN SMEAR FLAG 1; White Blood Count 11.7 X10*3/uL (4.8-10.8)
[2021-10-08 06:13] LABS: Anion Gap 15 (12-20); Blood Urea Nitrogen 8 mg/dL (9-16); Calcium 8.6 mg/dL (8.4-10.2); Carbon Dioxide 27 mmol/L (22-29); Chloride 100 mmol/L (96-108); Creatinine Clr Calc Pharmacy 79.1; Estimated Glomerular Filt Rate > 60; Glucose Fasting 127 mg/dL (60-99); Potassium 3.9 mmol/L (3.3-5.1); Sodium 138 mmol/L (135-145)
[2021-10-08 06:20] LABS: SLIDE REVIEW VERIFIED
[2021-10-08 07:25] LABS: Glucose, Whole Blood 128 mg/dL (60-115)
[2021-10-08 08:00] VITALS: BP 117/58; PULSE 91; RESP 17; TEMP 37.3; O2SAT 93
[2021-10-08] MEDS: 0.9 % Sodium Chloride Flush 3 ML SYRINGE IVFLUSH (08:02)
[2021-10-08] MEDS: HYDROmorphone HCl 0.5 MG/0.5 ML SYRINGE 0.25 MG IVPUSH (08:12)
[2021-10-08] MEDS: oxyCODONE HCl ER 10 MG TAB.ER.12H PO (08:13)
[2021-10-08] MEDS: Celecoxib 200 MG CAPSULE PO (08:13)
[2021-10-08] MEDS: Docusate Sodium 100 MG CAPSULE PO (08:13)
[2021-10-08] MEDS: Aspirin 325 MG TABLET PO (08:13)
[2021-10-08] MEDS: metFORMIN HCl 500 MG TABLET PO (08:13)
--- NOTE | 2021-10-08 08:44 | P.DS_ITS ---
DS: Providers Provider Date of Service: 10/08/21 Date of admission: 10/06/21 07:48 Primary care physician: Nikki Alberto MD Consults: 10/06/21 11:42 Consult to Hospitalist Routine Consulting Provider: Hospitalist Reason For Exam: routine medical management DS: Diagnosis Discharge Diagnosis (1) S/P total right hip arthroplasty: Status: Acute (2) Type 2 diabetes mellitus without complication, with no history of insulin use: Status: Acute (3) Essential hypertension: Status: Acute (4) GERD (gastroesophageal reflux disease): Status: Acute DS: Summary Hospital Course Hospital Course: The patient underwent a successful right total hip arthroplasty, they were transferred to PACU and then to the floor to recover. During their stay, their vitals were stable, afebrile at 99.3. Labs were unremarkable, H/H 10.6/32.6. POD 1 they were started on Aspirin 325mg po bid for DVT ppx, they also received Physical Therapy services twice a day. Prior to discharge, their dressing was changed, incision clean dry and intact, new Aquacel dressing applied and the plan was to be discharged home with VNA services. Time Spent with Patient Time attestation: Total time spent providing and/or coordinating discharge services: Discharge coordination time: Less than 30 minutes Quality: Safe Use of Opioids Does Pt have an Active Cancer Diagnosis on the Problem List?: No Quality: Stroke Does the patient have a stroke diagnosis?: No Physical Exam Vital Signs: Vital Signs: Last Vital Signs Temp 99.1 F 10/08/21 08:00 Pulse 91 10/08/21 08:00 Resp 17 10/08/21 08:00 BP 117/58 L 10/08/21 08:00 Pulse Ox 93 10/08/21 08:00 O2 Del Method 10/08/21 08:00 O2 Flow Rate 1 10/07/21 19:17 Oxygen Flow Rate 1 10/07/21 08:24 BMI result Body Mass Index 31.6 Const: General: cooperative, healthy appearing and no acute distress Resp: Effort & Inspection: normal respiratory effort and able to speak in complete sentences Cardio: Rate: regular rate Peripheral pulses: Peripheral pulses 2+ throughout GI: Palpation (GI): Soft to palpation Skin: Lesions: no lesions Rashes: no rashes Extrem: Other: Right hip kaushal intact. No erythema, edema, or drainage. Able to ambulate. No drainage. New Aquacel dressing applied. NVI. DS: Data Data Completed and Pending Pending studies at discharge: Pending at discharge 10/06/21 11:08 Surgical [PTH] Routine Labs on day of discharge: Laboratory Results - last 24 hr 10/07/21 10/07/21 10/07/21 11:11 15:28 19:17 WBC RBC Hgb Hct MCV MCH MCHC RDW Plt Count MPV Immature Gran % (Auto) Neut % (Auto) Lymph % (Auto) [place] % (Auto) Eos % (Auto) Baso % (Auto) Lymph # (Auto) [place] # (Auto) Eos # (Auto) Baso # (Auto) Abs Immat Gran (auto) Absolute Neuts (auto) Absolute Nucleated RBC Nucleated RBC % (auto) Smear Tech's Comments Sodium Potassium Chloride Carbon Dioxide Anion Gap BUN Creatinine Estim Creat Clear Calc Estimated GFR POC Glucose 151 H 135 H 180 H Fasting Glucose Calcium 10/08/21 10/08/21 10/08/21 05:37 05:37 07:16 WBC 11.7 H RBC 3.33 L Hgb 10.6 L Hct 32.6 L MCV 97.9 MCH 31.8 MCHC 32.5 RDW 13.9 Plt Count 264 MPV 9.7 Immature Gran % (Auto) 0.5 H Neut % (Auto) 58.7 Lymph % (Auto) 24.4 [place] % (Auto) 14.6 H Eos % (Auto) 1.4 Baso % (Auto) 0.4 Lymph # (Auto) 2.9 [place] # (Auto) 1.7 H Eos # (Auto) 0.2 Baso # (Auto) 0.1 Abs Immat Gran (auto) 0.06 H Absolute Neuts (auto) 6.9 Absolute Nucleated RBC 0.000 Nucleated RBC % (auto) 0.0 Smear Tech's Comments VERIFIED Sodium 138 Potassium 3.9 Chloride 100 Carbon Dioxide 27 Anion Gap 15 BUN 8 L Creatinine 0.67 Estim Creat Clear Calc 79.1 Estimated GFR > 60 POC Glucose 128 H Fasting Glucose 127 H Calcium 8.6 Discharge Plan Discharge Patient Disposition: Home Health Service Discharge Diagnosis: rt nicolas Referrals: Lexy Langston PA-C [Physician Dice Maker] - 2 Weeks (10/22/21 2:15 [facility] Lexy Langston, ALECIA) Discharge Medications: New docusate sodium 100 mg Capsule 100 mg PO BID 14 Days Qty: 28 0RF oxycodone 10 mg tablet 10 mg PO Q4H PRN (Reason: Pain, Moderate (Pain Scale 4-6) 7 Days Qty: 42 0RF Rx Instructions: Partial Fill upon patient request. celecoxib 200 mg Capsule 200 mg PO BID 30 Days Qty: 60 0RF acetaminophen 325 mg Tablet 650 mg PO Q6H PRN (Reason: Pain, Mild (Pain Scale 1-3)) 30 Days Qty: 240 0RF aspirin 325 mg Tablet 325 mg PO BID 42 Days Qty: 84 0RF Continued (DME) FreeStyle Lite Strips Strip See Rx Instructions .Route Qty: 200 3RF Rx Instructions: Test glucose twice day and as needed. (DME) lancets [FreeStyle Lancets] 28 gauge misc See Rx Instructions .Route Qty: 200 3RF Rx Instructions: Test blood sugar twice a day and as needed (DME) walker Misc See Rx Instructions .MEDSUPPLY Qty: 1 0RF Rx Instructions: Folding Front wheeled walker atorvastatin 10 mg tablet 10 mg PO BEDTIME gabapentin 300 mg capsule 300 mg PO BEDTIME omeprazole 20 mg capsule,delayed release(DR/EC) 20 mg PO DAILY@0630 lisinopril 5 mg tablet 5 mg PO DAILY diltiazem HCl [DILT-XR] 180 mg capsule,ext.rel 24h degradable 180 mg PO DAILY metformin 500 mg tablet 500 mg PO BID Discharge Orders: Discharge Order (Routine); Ordered 10/08/21 Ordered By: Lexy Langston Diet: Regular diet Activity on Discharge: Use cane or walker Stand Alone Forms: Patient Portal Discharge page Care Plan Goals: Restore function of joint Health Concerns: none Plan of Treatment: Physical Therapy Pain management DVT prophylaxis Assessment: * Physical Therapy for Total hip arthroplasty: wbat, posterior precautions, gait training, ROM, strength * Limit stair climbing * No showering, no tub bath-keep dressing clean, dry and intact * No driving x6 weeks * Continue Aspirin twice a day x 6 weeks * Follow up with [facility] in 2 weeks: * --you will also have your first out patient PT soni on the day of your post op appt-so please plan on being in the office that day for an extended period of time.
--- NOTE | 2021-10-08 08:56 | P.F2F_ITS ---
Service Date Service Date: 10/08/21 Encounter Date of encounter: 10/08/21 Reasons for Services Signs and symptoms assessed: Pt. is considered homebound due to recent surgery. Unable to drive, poor balance, poor gait mechanics. Reason for physical therapy: home safety and mobility, therapeutic exercises, restore joint function, gait/transfer training, assess need for DME and ADL training Reason for occupational therapy: home safety and mobility, therapeutic exercises, restore joint function, gait/transfer training, assess need for DME and ADL training Homebound: Leaving the home is medically contraindicated at this time without the asist of a device and/or another person due th the listed conditions above and below. Reason homebound: unsteady gait / fall risk, leg weakness, pain with ambulation, pain with transfers, poor balance / fall risk and unable to drive Homebound supporting statement: Pt. is considered homebound due to recent surgery. Unable to drive, poor balance, poor gait mechanics. Certification: Based on the above findings, I certify that this patient is confined to the home and needs intermittent halfway care, physical therapy and/or speech therapy, or continues to need occupational therapy. The patient is under my care, and I have initiated the establishment of the plan of care. The patient will be followed by a physician who will periodically review the plan of care.
--- NOTE | 2021-10-08 10:04 | MHC.CM.PN ---
Patient has been medically cleared for discharge today, she will discharge home with [place] [facility] services. Per patient, will transport home. No 2nd IMM needed.
[2021-10-08 10:10] VITALS: BP 117/58; PULSE 91; O2SAT 93
[2021-10-08 11:02] VITALS: BP 103/54; PULSE 82; RESP 14; TEMP 36.6; O2SAT 93
[2021-10-08 11:15] LABS: Glucose, Whole Blood 145 mg/dL (60-115)
== END 2021-10-08 14:59 | disposition home health service (06) | DRG 470 ==
LOC: HO.SSSA 07:50 → HO.S3 12:52
PROVIDERS: Physician Assistant; Admitting Provider Orthopaedic Surgery; PCP Internal Medicine; Visit Provider Orthopaedic Surgery
PROC: 0SR903A Replacement of Right Hip Joint with Ceramic Synthetic Substitute, Uncemented, Open Approach (ICD-10-PCS; CPT 27130; principal; 2021-10-06 09:30)
DX: M16.11 Unilateral primary osteoarthritis, right hip (principal); K21.9 Gastro-esophageal reflux disease without esophagitis; F17.210 Nicotine dependence, cigarettes, uncomplicated; E11.9 Type 2 diabetes mellitus without complications; I10 Essential (primary) hypertension; Z71.6 Tobacco abuse counseling; Z20.822 Contact with and (suspected) exposure to COVID-19; Z91.040 Latex allergy status; Z88.0 Allergy status to penicillin; Z88.5 Allergy status to narcotic agent; Z88.8 Allergy status to other drugs, medicaments and biological substances; Z79.84 Long term (current) use of oral hypoglycemic drugs; Z79.899 Other long term (current) drug therapy
CPT/HCPCS: 36415; 72170; 80048; 82947; 85014; 85018; 85025; 86850; 86900; 86901; 87635; 87640; 87641; 88304; 88311; 97110; 97116; 97162; 97166; 99212; C1776; J0131; J1170; J1200; J2250; J2370; J2405; J2795; J3010; J3370

== ENCOUNTER → 2021-10-15 13:24 | Outpatient (BNVA) | payer MEDICARE, OTHER, SELFPAY | PROVIDERS: PCP Internal Medicine; Visit Provider Physician Assistant | DX: L27.0 Generalized skin eruption due to drugs and medicaments taken internally (principal); M16.11 Unilateral primary osteoarthritis, right hip; Z96.641 Presence of right artificial hip joint | CPT/HCPCS: 99212 ==

== ENCOUNTER → 2021-10-22 14:01 | Outpatient (BNVA) | payer MEDICARE, OTHER, SELFPAY | PROVIDERS: PCP Internal Medicine; Visit Provider Physician Assistant | DX: Z47.1 Aftercare following joint replacement surgery (principal); Z96.641 Presence of right artificial hip joint | CPT/HCPCS: 99212 ==

== ENCOUNTER → 2021-11-19 14:37 | Outpatient (BNVA) | payer MEDICARE, OTHER, SELFPAY | PROVIDERS: PCP Internal Medicine; Visit Provider Physician Assistant | DX: Z47.1 Aftercare following joint replacement surgery (principal); Z96.641 Presence of right artificial hip joint | CPT/HCPCS: 99212 ==

== ENCOUNTER 2021-11-19 15:02 | Outpatient (REF) | payer MEDICARE, OTHER, SELFPAY ==
--- NOTE | ~2021-11-19 | XR_ITS ---
EXAMINATION: XR HIP, RIGHT CLINICAL INFORMATION: Pain COMPARISON: Previous x-ray most recent September 2021 TECHNIQUE: Two views of the right hip and one view of the pelvis. FINDINGS: Bone alignment is normal. No fracture or dislocation is seen. There is question of lucency adjacent inferior acetabular component. Bones of the pelvis are normal. The left hip joint is normal. There are degenerative changes of the lower lumbar spine. Soft tissues are normal. XR/XR hip RT w PEL1V IMPRESSION: Question lucency adjacent to the inferior acetabular component of the right hip replacement. Otherwise unremarkable exam.
== END 2021-11-19 15:03 | disposition home or self-care (01) ==
LOC: HO.HOSX 15:02
PROVIDERS: Visit Provider Physician Assistant
DX: M25.551 Pain in right hip (principal)
CPT/HCPCS: 73502

== ENCOUNTER 2021-12-21 09:50 | Outpatient (REF) | payer MEDICARE, OTHER, SELFPAY ==
[2021-12-21 11:26] LABS: MANUAL DIFF FLAG NO
[2021-12-21 12:00] LABS: Basophils Absolute Auto 0.1 X10*3/uL (0.0-0.2); Basophils Percent Auto 0.9 % (0-2); Eosinophils Absolute Auto 0.3 X10*3/uL (0.0-0.4); Eosinophils Percent Auto 2.7 % (0-4); Hematocrit 42.1 % (37.0-47.0); Hemoglobin 13.5 g/dl (12.0-16.0); Imm Gran Abs Auto 0.05 X10*3/uL (0.00-0.03); Imm Gran Pct Auto 0.4 % (0.0-0.4); Lymphocytes Absolute Auto 4.8 X10*3/uL (1.2-4.9); Lymphocytes Percent Auto 41.6 % (20-40); Mean Corpuscular HGB Conc 32.1 g/dl (31.0-35.0); Mean Corpuscular Hemoglobin 30.6 pg (27.0-33.0); Mean Corpuscular Volume 95.5 fL (80.0-98.0); Mean Platelet Volume 9.8 fL (9.4-12.3); Monocytes Absolute Auto 1.2 X10*3/uL (0.1-1.2); Monocytes Percent Auto 9.9 % (2-11); Neutrophils Absolute Auto 5.2 x10*3/uL (2.0-8.3); Neutrophils Percent Auto 44.5 % (45-73); Platelet Count 425 X10*3/uL (160-400); Red Blood Count 4.41 X10*6/uL (4.20-5.50); Red Cell Distribution Width 13.2 % (11.0-16.0); White Blood Count 11.6 X10*3/uL (4.8-10.8)
[2021-12-21 12:11] LABS: Alanine Aminotransferase 26 U/L (0-31); Anion Gap 17 (12-20); Aspartate Amino Transferase 28 U/L (5-31); Blood Urea Nitrogen 14 mg/dL (9-16); Calcium 9.9 mg/dL (8.4-10.2); Carbon Dioxide 27 mmol/L (22-29); Chloride 103 mmol/L (96-108); Cholesterol 256 mg/dL; Estimated Glomerular Filt Rate > 60; Glucose Fasting 115 mg/dL (60-99); HDL Cholesterol 73 mg/dL; Iron 87 mcg/dL (30-160); LDL Cholesterol Calculated 139 mg/dl; Percent Iron Saturation 20 % (15-50); Sodium 142 mmol/L (135-145); Total Iron Binding Capacity 438 mcg/dL (228-428); Triglycerides 224 mg/dL; Unsaturated Iron Binding 351 ug/dL
[2021-12-21 12:31] LABS: Creatinine Urine 73.37 mg/dL; Microalbum/Creatinine Ratio Ur 12.2 ug/mg cr; Vitamin D 25-OH Total 31.1 ng/mL (>30)
[2021-12-21 12:32] LABS: Estimated Average Glucose 134 mg/dL; Hemoglobin A1c % 6.3 %
== END 2021-12-21 09:51 | disposition home or self-care (01) ==
LOC: HO.HMGCLDS 09:50
PROVIDERS: PCP Internal Medicine; Visit Provider Internal Medicine
DX: E11.65 Type 2 diabetes mellitus with hyperglycemia (principal); I10 Essential (primary) hypertension; E78.5 Hyperlipidemia, unspecified; K21.9 Gastro-esophageal reflux disease without esophagitis; D64.9 Anemia, unspecified
CPT/HCPCS: 36415; 80048; 80061; 82043; 82306; 83036; 83540; 84450; 84460; 85025

== ENCOUNTER 2021-12-31 06:10 | Outpatient (REF) | payer MEDICARE, OTHER, SELFPAY ==
--- NOTE | ~2021-12-31 | XR_ITS ---
EXAMINATION: XR HIP, RIGHT CLINICAL INFORMATION: Right knee pain COMPARISON: 11/19/2021 TECHNIQUE: 2 views of right hip and pelvis FINDINGS: Patient is status post total hip replacement on the right with well positioned prosthesis. No fractures are identified. Pelvic bones are well-mineralized and soft tissues are unremarkable. XR/XR hip RT w PEL1V IMPRESSION: Well-positioned right hip prosthesis.
== END 2021-12-31 06:11 | disposition home or self-care (01) ==
LOC: HO.HOSX 06:10
PROVIDERS: Visit Provider Physician Assistant
DX: M25.551 Pain in right hip (principal)
CPT/HCPCS: 73502; 99212

== ENCOUNTER → 2021-12-31 14:02 | Outpatient (BNVA) | payer MEDICARE, OTHER, SELFPAY | PROVIDERS: PCP Internal Medicine; Visit Provider Orthopaedic Surgery | DX: M25.559 Pain in unspecified hip (principal); Z96.641 Presence of right artificial hip joint | CPT/HCPCS: 99212 ==

== ENCOUNTER 2022-01-01 14:00 | Outpatient (RCR) | payer MEDICARE, OTHER, SELFPAY ==
--- NOTE | 2021-10-22 15:04 | MHC.PT.EP ---
[facility] [place] Office [place] Office [place] Office [address] Venessa David [address] [phone] F: [phone] F: [phone] F: [phone] F: [phone] Physical Therapy Plan of Care Date of Evaluation: Date of Surgery: 10/06/21 Diagnosis: S/P Rt BIB Assessment: 66 YO FEMALE REF TO PT S/P RIGHT BIB ON 10/06/21. SHE RESIDES W HER SPOUSE IN A MOBILE HOME AND IS CURRENTLY AMB W A W/WALKER. OBJECTIVE FINDINGS: DECR POSTURAL AWARENESS, SWELLING IN Rt DISTAL LE, PO ROM DEFICITS RIGHT HIP, TIGHT HIP FLEXORS/ CALF MM, (+) STRENGTH DEFICITS, AND MILD RIGHT PROX LE PAIN. Pt IS VERY SAFETY AWARE WITH RESTRICTIONS/ PRECAUTIONS. FUNCTIONALLY, Pt IS CURRENTLY LIMITED WITH BED MOB, DECR STANDING MARITZA, ALTERED GAIT MECHANICS, STAIR MGMT, AND RESTRICTED WITH MORE PHYSICALLY DEMANDING ADLs. SHE IS MOTIVATED FOR PT TO ASSIST HER IN OBTAINING MAXIMAL LEVEL OF FUNCTIONAL INDEPENDENCE. Pt WOULD BENEFIT FROM PT AT THIS TIME TO GUIDE HER IN HER BIB POST-OP COURSE, DEV A PROGR HEP, IMPROVE PROPRIOCEPTION AND STRENGTH, ADDRESS PAIN MGMT. Frequency and Duration: The patient will be seen 2 X WK x 8 WKS Short Term Goals: *Pt'S RIGHT HIP PAIN DECR TO 2-3/10 IN 2 WKS *Pt INDEP SELF CORRECT TO NEUTRAL POSTURE AND DEMON EFFICIENT GAIT MECH W W/WALKER ON LEVEL AND PROPER TECHN W STAIR MGMT-> LEAST RESTRICTIVE ASST DEV IN 3 WKS *Pt IMPROVE AROM Rt LE AND DEMON IMPROVED CALF AND PSOAS FLEXIBILITY Awning Erector Goals: *Pt INDEP W HEP PROGR AND SELF-SX MGMT STRATEGIES FOR Rt BIB IN 8 WKS Pt RESUME REG ADLs TO MARITZA, W RESPECT TO BIB PRECAUTIONS EVIDENT IN IMPROVED LEFI BY 8-10 POINTS ( AT EVAL 12/80 ) IN 8 WKS *Pt IMPROVE Rt LE/ LUMBOPELVIC STRENGTH IN 8 WKS Treatment Plan: Modalities to reduce pain, spasms and effusion. Manual therapy to restore motion and function. Therapeutic exercise to improve strength and flexibility. Neuromuscular re-education for posture and balance. Therapeutic activities to return to functional activities of daily living. Electronically signed by: BLU CASTELAN PT Please sign and return to therapist. Thank you for your referral.
--- NOTE | 2022-01-01 14:56 | MHC.PT.DC ---
[facility] Office [place] Office [place] Office [address] Venessa David [address] [phone] F: [phone] F: [phone] F: [phone] F: [phone] Physical Therapy Discharge Report Diagnosis: S/P Rt BIB Date of Surgery: 10/06/21 Date of Evaluation: 10/22/21 Date of Discharge: 01/01/22 Treatments to Date: 10 Cancellations to Date: 0 No Shows to Date: 0 Discharge Status: Achieved Goals Improved Function Independent with HEP Discharge Summary: Reviewed importance of continuing HEP to continue to progress her hip strength and optimize mobility. She is able to take herself through exercise routine without cues. At this time, she is appropriate for d/c secondary to I with HEP. LEFS 57/80 Electronically signed by: Fawn Covington PT Please sign and return to therapist. Thank you for your referral.
== END 2022-01-01 14:57 | disposition home or self-care (01) ==
LOC: HO.PTCHIC 14:00
PROVIDERS: Visit Provider Physician Assistant
DX: Z96.641 Presence of right artificial hip joint (principal)
CPT/HCPCS: 97110; 97162; 97530

== ENCOUNTER 2022-01-31 14:06 | Emergency (ER) | payer MEDICARE, OTHER, SELFPAY ==
--- NOTE | ~2022-01-31 | XR_ITS ---
EXAMINATION: 1. RIGHT ANKLE. 2. RIGHT TIBIA-FIBULA. CLINICAL INFORMATION: Fall. Ankle pain. COMPARISON: None TECHNIQUE: 1. Right ankle. 3 views 2. Right leg. 2 views FINDINGS: 1.Right Ankle. Comminuted mildly displaced and minimally angulated fracture of the distal fibula. This is proximal to the synchondrosis. The tibia is intact. Ankle mortise is maintained. There is spurring of the distal tip of the fibula. There are a few small osseous fragments adjacent to the tip of lateral malleolus and the medial malleolus. These are likely chronic. 2. Right leg. No additional fracture of the proximal shaft of the tibia or fibula. Knee joint is unremarkable. XR/XR tibia fibula RT 2V IMPRESSION: 1. Right ankle. Comminuted mildly displaced and minimally angulated fracture of the distal fibula. 2. Right leg. No additional fracture of the proximal shaft of the tibia or fibula.
--- NOTE | ~2022-01-31 | XR_ITS ---
EXAMINATION: 1. RIGHT ANKLE. 2. RIGHT TIBIA-FIBULA. CLINICAL INFORMATION: Fall. Ankle pain. COMPARISON: None TECHNIQUE: 1. Right ankle. 3 views 2. Right leg. 2 views FINDINGS: 1.Right Ankle. Comminuted mildly displaced and minimally angulated fracture of the distal fibula. This is proximal to the synchondrosis. The tibia is intact. Ankle mortise is maintained. There is spurring of the distal tip of the fibula. There are a few small osseous fragments adjacent to the tip of lateral malleolus and the medial malleolus. These are likely chronic. 2. Right leg. No additional fracture of the proximal shaft of the tibia or fibula. Knee joint is unremarkable. XR/XR ankle RT 2V IMPRESSION: 1. Right ankle. Comminuted mildly displaced and minimally angulated fracture of the distal fibula. 2. Right leg. No additional fracture of the proximal shaft of the tibia or fibula.
[2022-01-31 14:14] VITALS: BP 158/93; PULSE 120; RESP 18; TEMP 36.7; O2SAT 99; BMI 36.3
--- NOTE | 2022-01-31 14:14 | ED.FALL ---
HPI - Fall General Chief Complaint: Extremity Injury, Lower Stated Complaint: R ankle pain Time Seen by Provider: 01/31/22 14:13 Source: patient and EMS Mode of arrival: EMS Limitations: no limitations History of Present Illness HPI Narrative: 66-year-old female brought in by ambulance for right ankle/foot injury. Patient was going down 2 steps stair missed a step twisting her right ankle causing her to fall down patient break the fall with her hands. Complaining of right ankle pain and swelling. Related Data Home Medications Medication Instructions Recorded Confirmed atorvastatin 10 mg tablet 10 mg PO BEDTIME 07/28/21 10/06/21 lisinopril 5 mg tablet 5 mg PO DAILY 10/06/21 10/06/21 Previous Rx's Medication Instructions Recorded blood sugar diagnostic (FreeStyle #200 ea 02/19/21 Lite Strips) lancets 28 gauge (FreeStyle #200 ea 02/19/21 Lancets) walker #1 ea 08/03/21 acetaminophen 325 mg tablet 650 mg PO Q6H PRN Pain, Mild (Pain 10/07/21 Scale 1-3) 30 days #240 tabs aspirin 325 mg tablet 325 mg PO BID 42 days #84 tabs 10/07/21 celecoxib 200 mg capsule 200 mg PO BID 30 days #60 caps 10/07/21 diltiazem HCl 180 mg 180 mg PO DAILY #90 caps 11/23/21 capsule,extended release 24 hr, controlled (DILT-XR) gabapentin 300 mg capsule 300 mg PO DAILY #30 caps 12/15/21 metformin 500 mg tablet 500 mg PO BID #60 tabs 12/15/21 hydrocodone 5 mg-acetaminophen 325 1 tab PO Q12H PRN pain 7 days #14 12/18/21 mg tablet tabs omeprazole 20 mg capsule,delayed 20 mg PO DAILY@0630 #90 caps 01/21/22 release hydrocodone 2.5 mg-acetaminophen 1 tab PO Q6H PRN pain #20 tabs 01/31/22 325 mg tablet Allergies Allergy/AdvReac Type Severity Reaction Status Date / Time ibuprofen [IBUPROFEN] Allergy Severe HIVES, Verified 12/24/21 15:21 vomiting blood, itchiness metronidazole [Flagyl] Allergy Severe hives, Verified 12/24/21 15:21 itching morphine [MORPHINE] Allergy Severe JITTERY, Verified 12/24/21 15:21 tremors, hives, rash adhesive tape [Adhesive Tape] Allergy Mild RASH Verified 12/24/21 15:21 flaxseed [FLAXSEED] Allergy Mild FELT Verified 12/24/21 15:21 JITTERY latex [Latex] Allergy Mild RASH Verified 12/24/21 15:21 Penicillins Allergy Mild RASH/THROAT Verified 12/24/21 15:21 SWELLING oxycodone Allergy Hives Verified 12/24/21 15:21 Heparin (Porcine) in NaCl Allergy Severe hives, Uncoded 12/24/21 15:21 itchy Review of Systems Review of Systems: All other systems are reviewed and are negative Constitutional: Reports as per HPI and Reports no additional constitutional complaints Eyes: Reports as per HPI and Reports no additional eye complaints Reports system reviewed and no additional complaints, except as documented Cardiovascular: Reports as per HPI and Reports no additional cardiovascular complaints Respiratory: Reports as per HPI and Reports no additional respiratory complaints Gastrointestinal: Reports as per HPI and Reports no additional gastrointestinal complaints Genitourinary: Reports no additional female genitourinary complaints Musculoskeletal: Reports no additional musculoskeletal complaints Skin/Breast: Reports system reviewed and no additional complaints, except as docu Psychiatric: Reports no additional psychiatric complaints Endocrine: Reports no additional endocrine complaints Hematologic/Lymphatic: Reports no additional hematologic/lymphatic complaints Allergic/Immunologic: Reports no additional allergic/immunologic complaints Reports system reviewed and no additional complaints, except as documented and Reports Abnormal speech present [facility] Past Medical History Medical History Anemia Arthritis of right hip Diabetes mellitus with hyperglycemia, without long-term current use of insulin Diabetes mellitus, without long-term current use of insulin Dyslipidemia Essential hypertension GERD (gastroesophageal reflux disease) Glaucoma Left bundle branch block (LBBB) Lobular breast cancer Osteoarthritis of right hip PONV (postoperative nausea and vomiting) Posterior vitreous detachment Pre-operative cardiovascular examination Prolapse of female pelvic organs Pulmonary nodule, right Seasonal allergies Type 2 diabetes mellitus without complication, with no history of insulin use Wrist fracture, right Surgical History H/O colectomy History of appendectomy History of carpal tunnel release History of tubal ligation Hx of colonoscopy S/P breast lumpectomy Family History Family History Father Diabetes mellitus Sister Lung cancer Social History Social History Household Members: None Housing: House Housing Other:: Trailer Are you a primary rn medicare to a significant other at home: No Do you presently have visiting nurse or other home services: No Alcohol intake: current Alcohol intake frequency: holidays/special occasions only Patient Tobacco Use Status: Current everyday Tobacco user Tobacco use type: Cigarette Cigarettes Per Day: 5.0 Years Smoked: 40 e-Cigarette/Vaping Use: Never Used Second Hand Smoke Exposure: Yes Advance Directives: No Advance Directives Information Provided: Yes service: No Current occupational status: retired Gender identity: Female Cognitive needs: No Hearing needs: No Vision needs: No Physical Exam Vital Signs: Vital Signs: Last Vital Signs Temp 98.0 F 01/31/22 14:14 Pulse 120 H 01/31/22 14:14 Resp 18 01/31/22 14:14 BP 158/93 H 01/31/22 14:14 Pulse Ox 99 01/31/22 14:14 O2 Del Method 01/31/22 14:14 BMI result Body Mass Index 36.3 Vital signs have been reviewed as appeared to be correct. Blood pressure normal. Tachycardia related to pain.. Respiration rate normal. Temperature normal. Oxygen saturation normal. Appearance: Alert. Oriented X3. No acute distress. Head: Normal external exam. Normocephalic. Atraumatic. No Lundy signs noted. No raccoon eyes noted Eyes: PERRLA. EOMI. Conjunctiva and sclera normal. Eyelids normal. ENT: TM's Normal. Pharynx normal. Uvula midline. Moist mucous membranes. No trismus noted. No drooling noted. No muffled voice noted. Neck: Normal inspection. Neck supple. FROM. No adenopathy. Thyroid Normal. No meningeal signs. No neck mass noted. CVS: Normal heart rate and rhythm. Heart sound normal. No murmurs noted. Pulses normal throughout. Respiratory: No respiratory distress. Painless inspiration. Breath sounds normal. No wheezes/rales/rhonchi noted. Chest nontender. No accessory muscle usage noted or decreased air movement noted. Abdomen: Soft and nontender. Bowel sounds normal in all 4 quadrants. No distention noted. No organomegaly noted. No visible injury noted. Back: No CVA tenderness. Full range of motion noted. Skin: Skin warm and dry. Normal skin color. Normal skin turgor. No rashes/lesions/lacerations noted. Extremities: Right lower extremity exam: Swelling over lateral malleolus of the right ankle, normal neurovascular exam. Neuro: Oriented X 3. Cranial nerve exam: II-XII are grossly intact No motor deficit. No sensory deficit. Reflexes normal. Course Course Course Narrative: 66-year-old female sustained a mechanical fall have a commuted fraction of her right fibula otherwise neurovascularly intact. Splint is applied (posterior and sugar-tong ) with crutches patient was instructed to avoid weight-bearing and follow up with Dr. Lang (information was provided). Medical Decision Making Medical Decision Making Differential Diagnoses: Differential diagnosis (Soft tissue contusion/ankle fracture.) Independent interpretation of EKG, rhythm strip, radiology study: Independent interp EKG,rhythm strip, radiology study I performed an independent interpretation of the: Plain X-Ray (Right ankle and right leg) My interpretation is comminuted fracture of right distal fibula Discussion of test interpretation with radiology: Discussion of test interpretation with radiology Discharge Plan Discharge Clinical Impression: Closed right fibular fracture Patient Disposition: Home, Self-Care Instructions: Leg Fracture (ED) Additional Instructions: ice/ no weight bearing use crutches at all times/keep the splint on/follow-up with Dr. Lang as instructed. Prescriptions: New hydrocodone-acetaminophen 2.5-325 mg tablet 1 tab PO Q6H PRN (Reason: pain) Qty: 20 0RF Rx Instructions: Partial Fill upon patient request. No Action (DME) FreeStyle Lite Strips Strip See Rx Instructions .Route Qty: 200 3RF Rx Instructions: Test glucose twice day and as needed. (DME) lancets [FreeStyle Lancets] 28 gauge misc See Rx Instructions .Route Qty: 200 3RF Rx Instructions: Test blood sugar twice a day and as needed (DME) walker Misc See Rx Instructions .MEDSUPPLY Qty: 1 0RF Rx Instructions: Folding Front wheeled walker diltiazem HCl [DILT-XR] 180 mg capsule,ext.rel 24h degradable 180 mg PO DAILY Qty: 90 1RF metformin 500 mg tablet 500 mg PO BID Qty: 60 5RF gabapentin 300 mg capsule 300 mg PO DAILY Qty: 30 3RF hydrocodone-acetaminophen 5-325 mg tablet 1 tab PO Q12H PRN (Reason: pain) 7 Days Qty: 14 0RF Rx Instructions: Partial Fill upon patient request. omeprazole 20 mg capsule,delayed release(DR/EC) 20 mg PO DAILY@0630 Qty: 90 1RF atorvastatin 10 mg tablet 10 mg PO BEDTIME lisinopril 5 mg tablet 5 mg PO DAILY celecoxib 200 mg Capsule 200 mg PO BID 30 Days Qty: 60 0RF acetaminophen 325 mg Tablet 650 mg PO Q6H PRN (Reason: Pain, Mild (Pain Scale 1-3)) 30 Days Qty: 240 0RF aspirin 325 mg Tablet 325 mg PO BID 42 Days Qty: 84 0RF Referrals: Odell Lang MD [Physician] - Nikki Ablerto MD [Primary Care Provider] -
[2022-01-31] MEDS: HYDROmorphone HCl 2 MG TABLET 1 MG PO (15:44)
== END 2022-01-31 16:29 | disposition home or self-care (01) ==
PROVIDERS: Emergency Provider Emergency Medicine; PCP Internal Medicine
DX: S82.401A Unspecified fracture of shaft of right fibula, initial encounter for closed fracture (principal); M25.471 Effusion, right ankle; W10.9XXA Fall (on) (from) unspecified stairs and steps, initial encounter; Y93.9 Activity, unspecified; Y92.9 Unspecified place or not applicable; Y99.9 Unspecified external cause status; Z79.899 Other long term (current) drug therapy; F17.210 Nicotine dependence, cigarettes, uncomplicated; Z71.6 Tobacco abuse counseling
CPT/HCPCS: 29515; 73590; 73600; 99283; 99284

== ENCOUNTER → 2022-02-01 14:15 | Outpatient (BNVA) | payer MEDICARE, OTHER, SELFPAY | PROVIDERS: PCP Internal Medicine; Visit Provider Physician Assistant | DX: S82.831A Other fracture of upper and lower end of right fibula, initial encounter for closed fracture (principal); E11.9 Type 2 diabetes mellitus without complications; Z79.84 Long term (current) use of oral hypoglycemic drugs | CPT/HCPCS: 99212 ==

== ENCOUNTER 2022-02-03 12:11 | Day surgery (SDC) | payer MEDICARE, OTHER, SELFPAY ==
--- NOTE | 2022-02-02 11:55 | HO.ANESPROP2 ---
Documented by User: Natasha Gongora NP 02/02/22 11:57 HPI - Anesthesia Eval Consult details Narrative: 66yo F for Right Ankle Fracture ORIF,Syndesmosis repair, s/p total hip 09/2021 with GA-ETT 7 (was cardiac cleared prior) [facility] Active Problems Active Problems: All Active Problems (Updated 02/01/22 @ 15:48 by Lexy Langston PA-C) Fracture of distal end of right fibula (Acute) Diabetes mellitus, without long-term current use of insulin (Acute) Anemia (Acute) Dyslipidemia (Acute) GERD (gastroesophageal reflux disease) (Acute) Essential hypertension (Acute) Drug eruption (Acute) S/P total right hip arthroplasty (Acute) Cystocele (Acute) WINDY (stress urinary incontinence, female) (Acute) Nephrolithiasis (Acute) Left bundle branch block (LBBB) (Acute) Pre-operative cardiovascular examination (Acute) Arthritis of right hip (Acute) Prolapse of female pelvic organs (Acute) Wrist fracture, right (Acute) Pulmonary nodule, right (Acute) Lobular breast cancer (Acute) Past Medical History Medical History Anemia Arthritis of right hip Diabetes mellitus with hyperglycemia, without long-term current use of insulin Diabetes mellitus, without long-term current use of insulin Dyslipidemia Essential hypertension GERD (gastroesophageal reflux disease) Glaucoma Left bundle branch block (LBBB) Lobular breast cancer Osteoarthritis of right hip PONV (postoperative nausea and vomiting) Posterior vitreous detachment Pre-operative cardiovascular examination Prolapse of female pelvic organs Pulmonary nodule, right Seasonal allergies Type 2 diabetes mellitus without complication, with no history of insulin use Wrist fracture, right Family History Family History Father Diabetes mellitus Sister Lung cancer Family history of problems with anesthesia: No Surgical History Surgical History H/O colectomy History of appendectomy History of carpal tunnel release History of tubal ligation Hx of colonoscopy S/P breast lumpectomy History of Problems with Anesthesia: Yes Social History Social History Household Members: None Housing: House Housing Other:: Trailer Are you a primary insurance healthcare representative to a significant other at home: No Do you presently have visiting nurse or other home services: No Alcohol intake: current Alcohol intake frequency: holidays/special occasions only Patient Tobacco Use Status: Current everyday Tobacco user Tobacco use type: Cigarette Cigarettes Per Day: 5.0 Years Smoked: 40 e-Cigarette/Vaping Use: Never Used Second Hand Smoke Exposure: Yes Advance Directives: No Advance Directives Information Provided: Yes service: No Current occupational status: retired Gender identity: Female Cognitive needs: No Hearing needs: No Vision needs: No Meds Allergies Allergy/AdvReac Type Severity Reaction Status Date / Time ibuprofen [IBUPROFEN] Allergy Severe HIVES, Verified 12/24/21 15:21 vomiting blood, itchiness metronidazole [Flagyl] Allergy Severe hives, Verified 12/24/21 15:21 itching morphine [MORPHINE] Allergy Severe JITTERY, Verified 12/24/21 15:21 tremors, hives, rash adhesive tape [Adhesive Tape] Allergy Mild RASH Verified 12/24/21 15:21 flaxseed [FLAXSEED] Allergy Mild FELT Verified 12/24/21 15:21 JITTERY latex [Latex] Allergy Mild RASH Verified 12/24/21 15:21 Penicillins Allergy Mild RASH/THROAT Verified 12/24/21 15:21 SWELLING oxycodone Allergy Hives Verified 12/24/21 15:21 Heparin (Porcine) in NaCl Allergy Severe hives, Uncoded 12/24/21 15:21 itchy Home Medications Medication Instructions Recorded Confirmed Last Taken Type atorvastatin 10 mg tablet 10 mg PO BEDTIME 07/28/21 10/06/21 10/05/21 History lisinopril 5 mg tablet 5 mg PO DAILY 10/06/21 10/06/21 10/05/21 History Exam Exam Date and Time: February 02, 2022 1155 Pertinent Lab Results Pertinent Lab Results: Laboratory Tests 12/21/21 12/21/21 09:55 09:55 WBC 11.6 H Hgb 13.5 D Hct 42.1 D Plt Count 425 H D Sodium 142 Potassium 5.0 D Chloride 103 Carbon Dioxide 27 BUN 14 D Creatinine 0.74 Narrative Narrative: EKG NSR @ 91 LBBB ECHO 08/2021 Conclusions: - 1.? Mildly reduced LV ejection fraction 45-50% with impaired ? relaxation filling pattern ? 2.? Cardiac valvular Doppler within normal limits? 3.? No gross pericardial effusion? ? NM sarah perf SPECT rest & str 08/2021 Impression: ? 1.? Myocardial perfusion imaging study shows likely normal myocardial perfusion 2.? Gated LVEF is 47% 3. Transient ischemic dilatation not present ? EKG is nondiagnostic for ischemia Assessment and Plan Assessment Anesthesia Assessment: Chart Reviewed Final Anesthetic Review Family History of Problems with Anesthesia: No History of Problems with Anesthesia: Yes Documented by User: Taylor Noyola MD 02/03/22 12:52 PMFSH Past Medical History Medical History Anemia Arthritis of right hip Diabetes mellitus with hyperglycemia, without long-term current use of insulin Diabetes mellitus, without long-term current use of insulin Dyslipidemia Essential hypertension GERD (gastroesophageal reflux disease) Glaucoma Left bundle branch block (LBBB) Lobular breast cancer Osteoarthritis of right hip PONV (postoperative nausea and vomiting) Posterior vitreous detachment Pre-operative cardiovascular examination Prolapse of female pelvic organs Pulmonary nodule, right Seasonal allergies Type 2 diabetes mellitus without complication, with no history of insulin use Wrist fracture, right Family History Family History Father Diabetes mellitus Sister Lung cancer Surgical History Surgical History H/O colectomy History of appendectomy History of carpal tunnel release History of tubal ligation Hx of colonoscopy S/P breast lumpectomy History of Problems with Anesthesia: No Social History Social History Household Members: None Housing: House Housing Other:: Trailer Are you a primary insurance healthcare representative to a significant other at home: No Do you presently have visiting nurse or other home services: No Alcohol intake: current Alcohol intake frequency: holidays/special occasions only Patient Tobacco Use Status: Current everyday Tobacco user Tobacco use type: Cigarette Cigarettes Per Day: 5.0 Years Smoked: 40 e-Cigarette/Vaping Use: Never Used Second Hand Smoke Exposure: Yes Advance Directives: No Advance Directives Information Provided: Yes service: No Current occupational status: retired Gender identity: Female Cognitive needs: No Hearing needs: No Vision needs: No Meds Allergies Allergy/AdvReac Type Severity Reaction Status Date / Time ibuprofen [IBUPROFEN] Allergy Severe HIVES, Verified 12/24/21 15:21 vomiting blood, itchiness metronidazole [Flagyl] Allergy Severe hives, Verified 12/24/21 15:21 itching morphine [MORPHINE] Allergy Severe JITTERY, Verified 12/24/21 15:21 tremors, hives, rash adhesive tape [Adhesive Tape] Allergy Mild RASH Verified 12/24/21 15:21 flaxseed [FLAXSEED] Allergy Mild FELT Verified 12/24/21 15:21 JITTERY latex [Latex] Allergy Mild RASH Verified 12/24/21 15:21 Penicillins Allergy Mild RASH/THROAT Verified 12/24/21 15:21 SWELLING oxycodone Allergy Hives Verified 12/24/21 15:21 Heparin (Porcine) in NaCl Allergy Severe hives, Uncoded 12/24/21 15:21 itchy Home Medications Medication Instructions Recorded Confirmed Last Taken Type atorvastatin 10 mg tablet 10 mg PO BEDTIME 07/28/21 10/06/21 10/05/21 History lisinopril 5 mg tablet 5 mg PO DAILY 10/06/21 10/06/21 10/05/21 History Exam Airway Mallampati Class: II TM Dist: >3cm Neck ROM: Full Heart: rrr Lungs: cta Assessment and Plan Assessment Anesthesia Assessment: Anesthesia Plan Discussed Final Anesthetic Review History of Problems with Anesthesia: No NPO: Yes ASA Class: III Final Preanesthetic Review: No Changes in Pt Med Stat, Meds/Allgs Chart Reviewed and Consent Obtained/Reviewed Patient Risk: Intermediate Procedure Risk: Intermediate Anesthetic Plan Anesthetic Plan: GA Disposition: Standard PACU
[2022-02-03] VITALS (11 sets, daily range): BP systolic 98–119; BP diastolic 50–70; PULSE 74–90; RESP 14–20; TEMP 36.2–36.6; O2SAT 90–97; BMI 33.5
--- NOTE | ~2022-02-03 | FL_ITS ---
EXAMINATION: XR FLUOROSCOPY WITH IMAGES CLINICAL INFORMATION: Open reduction internal fixation of the right ankle. COMPARISON: None. TECHNIQUE: Fluoroscopy Supervised By: Dr. Odell Lang Fluoroscopy Time: 0.2 minutes Cumulative Dose: 0.552 mGy DAP: 0.0095 mGy-cm2 Images: 4 FINDINGS: There is a comminuted fracture distal fibula with a small metallic plate along the medial malleolus and a smaller round metallic button along the lateral malleolus. FL/FL guidance in OR IMPRESSION: Comminuted fracture distal fibula with a metallic plate and a smaller round metallic button along the lateral malleolus. Fluoroscopy guidance was provided to referring physician during the exam.
[2022-02-03 12:56] LABS: Glucose, Whole Blood 153 mg/dL (60-115)
[2022-02-03] MEDS: Lactated Ringers 1,000 ML 100 ML IVCONT (12:59)
[2022-02-03] MEDS: Scopolamine 1.5 MG PATCH.TD.3 TRANSDERMA (13:00)
[2022-02-03] MEDS: HYDROcodone Bit/Acetam 5/325 TABLET 2 TAB PO (14:10)
[2022-02-03] MEDS: fentaNYL citrate/PF 100 MCG/2 ML VIAL 50 MCG IVPUSH ×2 (14:17→14:45)
--- NOTE | 2022-02-04 09:48 | PM.OP ---
Brief Operative Note Date of Service: 02/03/22 Pre-op diagnosis: right fibular fracture Post-op diagnosis: same Procedure: ORIF right syndesmosis Implants: Arthrex syndesmosis tightrope Surgeon: Odell Lang MD Anesthesia: GETA and local Was an Escrow Assistant used for this Procedure?: Yes Escrow Assistant: Lexy Langston Estimated blood loss (mL): 5 IV fluids (mL): 500 Pathology: none sent Condition: stable Disposition: PACU
--- NOTE | 2022-02-04 09:52 | W.PM.OPN ---
Operative Note Operative Note Date of Service: 02/03/22 Narrative: Date of Service: 02/03/22 Pre-op diagnosis: right fibular fracture Post-op diagnosis: same Procedure: ORIF right syndesmosis Implants: Arthrex syndesmosis tightrope Surgeon: Odell Lang MD Anesthesia: GETA and local Was an Insurance Sales Executive used for this Procedure?: Yes Insurance Sales Executive: Lexy Langston Estimated blood loss (mL): 5 IV fluids (mL): 500 Pathology: none sent Condition: stable Disposition: PACU Procedure in detail: Patient was brought to the operating room and placed supine on the operative table. All bony prominences were well padded and a time-out was called to identify proper site proper procedure proper surgeon. IV antibiotics per weight were administered. I began by exsanguinating limb is slightly tourniquet to 300 mm Hg. This syndesmosis was tested using external rotation test and was widened laterally. Given the high nature of the fibula fracture a kellie incision was made over the distal fibula at the level of the physeal scar and a syndesmosis tightrope was placed lateral to medial and slightly posterior to anterior using standard technique. A kellie incision was made over the medial malleolus and the syndesmosis was clamped. The tightrope was tightened. Once I was satisfied with the alignment using biplanr fluoro and external rotation stress test all instrumentation was removed and copious irrigation was performed. Absorbable suture and kaushal were used for closure and the patient was placed into sterile dressings and a well-padded posterior splint. Tourniquet was let down and the patient was extubated brought to recovery room in stable condition there were no known complications.
== END 2022-02-03 16:34 | disposition home or self-care (01) ==
PROVIDERS: PCP Internal Medicine; Visit Provider Orthopaedic Surgery
PROC: (CPT 27792; principal; 2022-02-03 15:30)
DX: S82.401A Unspecified fracture of shaft of right fibula, initial encounter for closed fracture (principal); W10.9XXA Fall (on) (from) unspecified stairs and steps, initial encounter; Y93.89 Activity, other specified; Y92.9 Unspecified place or not applicable; Y99.8 Other external cause status; I10 Essential (primary) hypertension; D64.9 Anemia, unspecified; E78.5 Hyperlipidemia, unspecified; E11.65 Type 2 diabetes mellitus with hyperglycemia; Z79.4 Long term (current) use of insulin; Z79.899 Other long term (current) drug therapy; Z88.0 Allergy status to penicillin; Z88.8 Allergy status to other drugs, medicaments and biological substances; Z91.040 Latex allergy status
CPT/HCPCS: 27792; 27829; 82947; C1713; J2250; J2405; J2795; J3010

== ENCOUNTER 2022-02-18 17:07 | Outpatient (REF) | payer MEDICARE, OTHER, SELFPAY ==
--- NOTE | ~2022-02-18 | XR_ITS ---
EXAMINATION: XR ANKLE, RIGHT CLINICAL INFORMATION: Pain. COMPARISON: Right ankle 01/31/2022 TECHNIQUE: AP, lateral, and mortise views of the right ankle. FINDINGS: There is a comminuted fracture of the distal fibula with a displaced medial fragment. There are postsurgical changes along the medial and lateral malleoli from previous intervention. The hardware noted previously has been removed. The ankle mortise and subtalar joints are normal. There is bimalleolar soft tissue swelling. XR/XR ankle RT min 3V IMPRESSION: Comminuted fracture of the distal fibula with a displaced medial fragment and mild angulation. These findings are unchanged to previous study 01/31/2022. There is mild bimalleolar soft soft tissue swelling. No new acute fracture or dislocation is seen. The previous hardware has been removed with surgical kaushal seen along the bilateral malleoli.
== END 2022-02-18 17:08 | disposition home or self-care (01) ==
LOC: HO.HOSX 17:07
PROVIDERS: Visit Provider Physician Assistant
DX: S82.831D Other fracture of upper and lower end of right fibula, subsequent encounter for closed fracture with routine healing (principal)
CPT/HCPCS: 29405; 73610; 99212

== ENCOUNTER → 2022-03-08 14:04 | Outpatient (BNVA) | payer MEDICARE, OTHER, SELFPAY | PROVIDERS: PCP Internal Medicine; Visit Provider Physician Assistant | DX: S82.831D Other fracture of upper and lower end of right fibula, subsequent encounter for closed fracture with routine healing (principal) | CPT/HCPCS: 29405; 99212 ==

== ENCOUNTER 2022-03-18 16:24 | Outpatient (REF) | payer MEDICARE, OTHER, SELFPAY ==
--- NOTE | ~2022-03-18 | XR_ITS ---
EXAMINATION: XR ANKLE, RIGHT CLINICAL INFORMATION: Pain right ankle. COMPARISON: 02/18/2022 and 01/31/2022. TECHNIQUE: AP, lateral, and mortise views of the right ankle. FINDINGS: Patient is again seen to be status post comminuted fracture of the distal right fibula with some medial displacement of a fracture fragment. Since previous studies there has been increasing callus formation with what appears to be some bridging of fracture fragments. Metallic hardware is seen about the medial and lateral malleoli. Soft tissue swelling remains about the lateral malleolus. There appears to be approximately 6 degrees of talar tilt. Some soft tissue swelling with some osteopenia is again seen about the medial malleolus and distal to it. XR/XR ankle RT min 3V IMPRESSION: 1. Healing comminuted fracture of the distal right fibula. 2. Approximately 6 degrees of talar tilt. 3. Soft tissue swelling as described.
== END 2022-03-18 16:25 | disposition home or self-care (01) ==
LOC: HO.HOSX 16:24
PROVIDERS: Visit Provider Physician Assistant
DX: S82.831D Other fracture of upper and lower end of right fibula, subsequent encounter for closed fracture with routine healing (principal)
CPT/HCPCS: 73610; 99212

== ENCOUNTER 2022-04-08 14:53 | Outpatient (REF) | payer MEDICARE, OTHER, SELFPAY ==
--- NOTE | ~2022-04-08 | XR_ITS ---
EXAMINATION: XR PELVIS CLINICAL INFORMATION: Hip pain. COMPARISON: Pelvis 12/31/2021 TECHNIQUE: AP view of the pelvis. FINDINGS: Right total hip replacement in anatomic alignment on this single view. No fracture. Mild degenerative changes in the left hip. XR/XR pelvis 1-2V IMPRESSION: Right total hip replacement. Mild degenerative changes left hip.
== END 2022-04-08 14:54 | disposition home or self-care (01) ==
LOC: HO.HOSX 14:53
PROVIDERS: Visit Provider Physician Assistant
DX: M25.551 Pain in right hip (principal); Z96.641 Presence of right artificial hip joint
CPT/HCPCS: 72170; 99212

== ENCOUNTER 2022-04-23 10:14 | Outpatient (REF) | payer MEDICARE, OTHER, SELFPAY ==
--- NOTE | ~2022-04-23 | US_ITS ---
EXAMINATION: US VENOUS ULTRASOUND WITH DOPPLER LOWER EXTREMITY, RIGHT CLINICAL INFORMATION: Right lower extremity pain and swelling. COMPARISON: None TECHNIQUE: Ultrasound of the deep veins is performed from the hip to the calf with compression sonography and color and pulse Doppler assessment. Spectral analysis with color-flow imaging is performed. FINDINGS: There is normal venous compression and respiratory variation and augmented flow. The visualized common femoral vein, superficial femoral vein, profunda femoral vein, popliteal vein, and the trifurcation region shows no evidence of deep venous thrombosis. No right popliteal cyst. The subcutaneous soft tissues are unremarkable. US/US venous duplex LE RT IMPRESSION: No DVT demonstrated in the right lower extremity.
--- NOTE | ~2022-04-23 | XR_ITS ---
EXAMINATION: XR ANKLE, RIGHT CLINICAL INFORMATION: Fracture distal right fibular shaft. Follow-up. COMPARISON: Radiographs right ankle 03/18/2022, 02/18/2022 TECHNIQUE: AP, lateral, and mortise views of the right ankle. FINDINGS: The distal fibular shaft fracture is unchanged in alignment. Fracture lines less distinct consistent with continued healing. The ankle mortise is symmetric. There is mild soft tissue swelling again noted. No acute bony abnormality. XR/XR ankle RT min 3V IMPRESSION: Continued healing distal fibular fracture. No change in alignment.
== END 2022-04-23 10:15 | disposition home or self-care (01) ==
LOC: HO.US 10:14
PROVIDERS: PCP Internal Medicine; Visit Provider Physician Assistant
DX: S82.831A Other fracture of upper and lower end of right fibula, initial encounter for closed fracture (principal); M79.661 Pain in right lower leg; X58.XXXA Exposure to other specified factors, initial encounter; Y93.9 Activity, unspecified; Y92.9 Unspecified place or not applicable; Y99.9 Unspecified external cause status
CPT/HCPCS: 73610; 93971

== ENCOUNTER 2022-04-26 12:54 | Outpatient (REF) | payer MEDICARE, OTHER, SELFPAY ==
--- NOTE | ~2022-04-26 | XR_ITS ---
EXAMINATION: XR ANKLE, RIGHT CLINICAL INFORMATION: Pain COMPARISON: 04/23/2022 TECHNIQUE: AP, lateral, and mortise views of the right ankle. FINDINGS: Redemonstration of distal fibular fracture in unchanged alignment with surrounding callus formation. Ankle mortise is preserved. XR/XR ankle RT min 3V IMPRESSION: Healing distal fibular fracture in unchanged alignment.
== END 2022-04-26 12:55 | disposition home or self-care (01) ==
LOC: HO.HOSX 12:54
PROVIDERS: Visit Provider Physician Assistant
DX: S82.831D Other fracture of upper and lower end of right fibula, subsequent encounter for closed fracture with routine healing (principal); X58.XXXD Exposure to other specified factors, subsequent encounter
CPT/HCPCS: 73610; 99212

== ENCOUNTER 2022-04-29 08:56 | Outpatient (REF) | payer MEDICARE, OTHER, SELFPAY ==
[2022-04-29 12:17] LABS: Alanine Aminotransferase 37 U/L (0-31); Anion Gap 17 (12-20); Aspartate Amino Transferase 49 U/L (5-31); Blood Urea Nitrogen 12 mg/dL (9-16); Calcium 9.5 mg/dL (8.4-10.2); Carbon Dioxide 25 mmol/L (22-29); Chloride 101 mmol/L (96-108); Cholesterol 235 mg/dL; Estimated Glomerular Filt Rate > 60; Glucose Fasting 169 mg/dL (60-99); HDL Cholesterol 64 mg/dL; LDL Cholesterol Calculated 130 mg/dl; Potassium 4.3 mmol/L (3.3-5.1); Sodium 139 mmol/L (135-145); Triglycerides 207 mg/dL
[2022-04-29 12:26] LABS: Estimated Average Glucose 143 mg/dL; Hemoglobin A1c % 6.6 %
[2022-04-29 12:36] LABS: Vitamin D 25-OH Total 36.9 ng/mL (>30)
== END 2022-04-29 08:57 | disposition home or self-care (01) ==
LOC: HO.HMGCLDS 08:56
PROVIDERS: PCP Internal Medicine; Visit Provider Internal Medicine
DX: E11.9 Type 2 diabetes mellitus without complications (principal); E78.5 Hyperlipidemia, unspecified; I10 Essential (primary) hypertension
CPT/HCPCS: 36415; 80048; 80061; 82306; 83036; 84450; 84460

== ENCOUNTER 2022-04-30 14:08 | Outpatient (REF) | payer MEDICARE, OTHER, SELFPAY ==
[2022-04-30 16:38] LABS: Creatinine Urine 97.84 mg/dL; Microalbum/Creatinine Ratio Ur 110.3 ug/mg cr
== END 2022-04-30 14:09 | disposition home or self-care (01) ==
LOC: HO.HMGCLDS 14:08
PROVIDERS: Visit Provider Internal Medicine
DX: E11.9 Type 2 diabetes mellitus without complications (principal); E78.5 Hyperlipidemia, unspecified; I10 Essential (primary) hypertension
CPT/HCPCS: 82043

== ENCOUNTER 2022-06-11 14:00 | Outpatient (RCR) | payer MEDICARE, OTHER, SELFPAY ==
--- NOTE | 2022-05-12 17:07 | MHC.PT.EP ---
[facility] [place] Office [place] Office [place] Office [address] Venessa David [address] [phone] F: [phone] F: [phone] F: [phone] F: [phone] Physical Therapy Plan of Care Date of Evaluation: Date of Surgery: 02/04/22 Diagnosis: ORIF distal end R fibula. Assessment: Pt is a 66 y/o female referred to PT for eval and treat s/p ORIF distal end R fibula performed on 02/03/2022; she persists with decreased tolerance for walking increased distances, standing for duration, performing heavy HH chores, and squatting activities secondary to decreased R ankle ROM and strength, gait abnormality, continued healing process, and pain. Pt is deemed an appropriate candidate to receive skilled PT services to address their physical impairments in order to improve their functional ability. Frequency and Duration: The patient will be seen 2 x / wk x 5 wks. Short Term Goals: Initiate HEP. Improve R ankle DF by at least 5 degrees; initial: 10 degrees. Nursing Home Goals: I with Home Program. Pt will be able to 1 mile with a little bit of difficulty; initial: with extreme difficulty or unable. Improve LEFI outcome by at least 9 points in order to demonstrate improved function. Ambulates w/o AD. Treatment Plan: Modalities to reduce pain, spasms and effusion. Manual therapy to restore motion and function. Therapeutic exercise to improve strength and flexibility. Neuromuscular re-education for posture and balance. Therapeutic activities to return to functional activities of daily living. Electronically signed by: Jas Navarrete PT. Please sign and return to therapist. Thank you for your referral.
--- NOTE | 2022-10-13 09:17 | MHC.PT.DC ---
[facility] [place] Office [place] Office [place] Office [address] Venessa David [address] [phone] F: [phone] F: [phone] F: [phone] F: [phone] Physical Therapy Discharge Report Diagnosis: ORIF distal end R fibula. Date of Surgery: 02/04/22 Date of Evaluation: 05/12/22 Date of Discharge: 10/13/22 Treatments to Date: 5 Cancellations to Date: No Shows to Date: Discharge Status: Improved Function Independent with HEP Patient Elected to Stop Discharge Summary: From last Tx note: 06/11: patient is feeling much better, she is ready for DC and I in her program. She has no pain, normal ankle ROM, normal hip/knee and ankle MMT. She requested self DC and feels ready. I educated her that we will leave her chart open for 30 days unless something changes. Electronically signed by: Jas Navarrete PT. Please sign and return to therapist. Thank you for your referral.
== END 2022-10-13 09:17 | disposition home or self-care (01) ==
LOC: HO.PTCHIC 14:00
PROVIDERS: PCP Internal Medicine; Visit Provider Physician Assistant
DX: S82.831A Other fracture of upper and lower end of right fibula, initial encounter for closed fracture (principal)
CPT/HCPCS: 97110; 97140; 97161

== ENCOUNTER 2022-06-17 07:07 | Outpatient (REF) | payer MEDICARE, OTHER, SELFPAY ==
--- NOTE | ~2022-06-17 | XR_ITS ---
EXAMINATION: XR ANKLE, RIGHT CLINICAL INFORMATION: Pain in the ankle and foot COMPARISON: 04/26/2022 TECHNIQUE: AP, lateral, and mortise views of the right ankle. FINDINGS: There is a distal fibular diaphyseal fracture showing progressive healing, with increased callus formation at the fracture site. The fracture line is no longer evident. Endobuttons are seen along the distal tibia and fibula, unchanged in position from prior. Alignment along the ankle mortise is maintained. Lateral soft tissue swelling. No ankle joint effusion. XR/XR ankle RT min 3V IMPRESSION: Progressive healing of the distal fibular diaphyseal fracture. Unchanged alignment along the ankle mortise. Soft tissue swelling.
== END 2022-06-17 07:08 | disposition home or self-care (01) ==
LOC: HO.HOSX 07:07
PROVIDERS: Visit Provider Physician Assistant
DX: S82.831A Other fracture of upper and lower end of right fibula, initial encounter for closed fracture (principal)
CPT/HCPCS: 73610; 99212

== ENCOUNTER 2022-09-27 08:11 | Outpatient (REF) | payer MEDICARE, OTHER, SELFPAY ==
[2022-09-27 12:11] LABS: Estimated Average Glucose 151 mg/dL; Hemoglobin A1c % 6.9 %
[2022-09-27 12:21] LABS: Alanine Aminotransferase 27 U/L (0-31); Anion Gap 19 (12-20); Aspartate Amino Transferase 33 U/L (5-31); Blood Urea Nitrogen 17 mg/dL (9-16); Carbon Dioxide 20 mmol/L (22-29); Chloride 102 mmol/L (96-108); Cholesterol 196 mg/dL; Estimated Glomerular Filt Rate 59; Glucose Fasting 146 mg/dL (60-99); HDL Cholesterol 67 mg/dL; LDL Cholesterol Calculated 95 mg/dl; Sodium 137 mmol/L (135-145); Triglycerides 171 mg/dL
== END 2022-09-27 08:12 | disposition home or self-care (01) ==
LOC: HO.HMGCLDS 08:11
PROVIDERS: PCP Internal Medicine; Visit Provider Internal Medicine
DX: E11.9 Type 2 diabetes mellitus without complications (principal); E78.5 Hyperlipidemia, unspecified; I10 Essential (primary) hypertension
CPT/HCPCS: 36415; 80048; 80061; 82550; 83036; 84450; 84460

== ENCOUNTER 2022-09-29 11:24 | Outpatient (AMB) | payer MEDICARE, OTHER, SELFPAY ==
[2022-09-29 11:43] VITALS: BP 124/74; PULSE 99; O2SAT 97; BMI 34.2
--- NOTE | 2022-09-29 11:43 | MHC.PC.OV ---
Vital Signs 09/29/22 11:43 Height 5 ft 2 in Weight 187 lb BMI 34.2 BP 124/74 Blood Pressure Location Lt brachial Position Sitting Pulse 99 Pulse Source Pulse Oximeter Pulse Oximetry (%) 97 Oxygen Delivery Method Room Air Intake Visit Reasons: 4 month ffup dm . lipids , htn Intake Note: Pt is here today for her 4 months f/u Allergies ibuprofen [IBUPROFEN] Allergy (Severe, Verified 09/29/22 12:25) HIVES, vomiting blood, itchiness metronidazole [Flagyl] Allergy (Severe, Verified 09/29/22 12:25) hives, itching morphine [MORPHINE] Allergy (Severe, Verified 09/29/22 12:25) JITTERY, tremors, hives, rash adhesive tape [Adhesive Tape] Allergy (Mild, Verified 09/29/22 12:25) RASH flaxseed [FLAXSEED] Allergy (Mild, Verified 09/29/22 12:25) FELT JITTERY latex [Latex] Allergy (Mild, Verified 09/29/22 12:25) RASH Penicillins Allergy (Mild, Verified 09/29/22 12:25) RASH/THROAT SWELLING oxycodone Allergy (Verified 09/29/22 12:25) Hives Heparin (Porcine) in NaCl Allergy (Severe, Uncoded 09/29/22 12:25) hives, itchy Medication List - Last Reconciled 09/29/22 by Nikki Alberto MD atorvastatin 20 mg PO BEDTIME blood sugar diagnostic (FreeStyle Lite Strips) Test glucose twice day and as needed. diltiazem HCl ER (DILT-XR) 180 mg PO DAILY gabapentin 300 mg PO DAILY lancets (FreeStyle Lancets) Test blood sugar twice a day and as needed lisinopril 5 mg PO DAILY metformin 500 mg PO BID omeprazole 20 mg PO DAILY@0630 Tobacco use date assessed: 09/29/22 Fall risk assessment: 1 Fall in past year Last assessed Fall Risk: 09/29/22 Dental Screening Dental Screen Date: 09/29/22 Did you have a dental visit in the last 12 months?: No Was dental information given to patient?: Patient declined HPI 4 month ffup dm . lipids , htn HPI Details 67-year-old lady with diabetes mellitus, dyslipidemia, hypertension, and osteoarthritis, here today for follow-up. She has been following her diet, compliant with taking her medications, and has been trying to move regularly for exercise. Recent fasting labs showed unremarkable findings except for higher hemoglobin A1c level as compared to last check. She also has been having pain and stiffness in her hip and knee, worse with ambulation. Would like handicap placard form completed . [facility] Medical History Anemia Arthritis of right hip Cystocele Diabetes mellitus with hyperglycemia, without long-term current use of insulin Diabetes mellitus, without long-term current use of insulin Dyslipidemia Essential hypertension Fracture of distal end of right fibula GERD (gastroesophageal reflux disease) Glaucoma Left bundle branch block (LBBB) Lobular breast cancer Osteoarthritis of right hip PONV (postoperative nausea and vomiting) Posterior vitreous detachment Pre-operative cardiovascular examination Prolapse of female pelvic organs Pulmonary nodule, right Seasonal allergies Type 2 diabetes mellitus without complication, with no history of insulin use Wrist fracture, right Surgical History H/O colectomy History of appendectomy History of carpal tunnel release History of tubal ligation Hx of colonoscopy S/P breast lumpectomy S/P total right hip arthroplasty S/P total right hip arthroplasty Family History Father Diabetes mellitus Sister Lung cancer Social History Household Members: None Housing: House Housing Other:: Trailer Are you a primary respiratory care specialist to a significant other at home: No Do you presently have visiting nurse or other home services: No Alcohol intake: current Alcohol intake frequency: does not drink Patient Tobacco Use Status: Current everyday Tobacco user Tobacco use type: Cigarette Cigarettes Per Day: 5.0 Years Smoked: 40 e-Cigarette/Vaping Use: Never Used Second Hand Smoke Exposure: Yes service: No Current occupational status: retired Gender identity: Female Cognitive needs: No Hearing needs: No Vision needs: Yes Questionnaire Thrive Questionnaire Date Thrive assessed: 04/30/22 ARIS-7 AMB Questionnaire ARIS-7 Date ARIS - 7 assessed: 04/30/22 Source: Developed by Drs. Nelson Sommers, Meredith Avila, Keon Coronado and colleagues, with an educational selene from [employer]. Review of Systems Const Denies fatigue, Denies fever(s), Denies headache(s) and Denies weakness Eyes Denies change in vision and Denies itchy eyes ENT Denies dizziness, Denies headache(s), Denies nasal congestion, Denies nasal discharge and Denies sore throat Card Denies chest pain, Denies lightheadedness, Denies palpitations and Denies dyspnea Resp Denies chest congestion, Denies cough, Denies dyspnea and Denies wheezing GI Denies abdominal pain, Denies change in bowel habits and Denies heartburn Denies hematuria, Denies urinary frequency, Denies dysuria and Denies urinary urgency Musc Reports as per HPI Skin/Breast Denies breast pain, Denies breast mass, Denies lesions and Denies rash Neuro Denies dizziness, Denies headache(s) and Denies weakness Psych Reports no additional complaints Endo Denies fatigue, Denies polydipsia, Denies polyuria and Denies palpitations Nam/Lymph Denies easy bruising Aller/Immun Denies itchy eyes, Denies seasonal rhinorrhea and Denies wheezing Physical exam (Primary Care) Vital Signs: Last Vital Signs Pulse 99 09/29/22 11:43 BP 124/74 09/29/22 11:43 Pulse Ox 97 09/29/22 11:43 Oxygen Delivery Method Room Air 09/29/22 11:43 BMI result Body Mass Index 34.2 Tobacco/Smoking Status: Tobacco use Status Tobacco use date assessed 09/29/22 09/29/22 11:49 Patient Tobacco Use Status Current everyday Tobacco 09/29/22 11:49 Tobacco use type Cigarette 09/29/22 11:49 e-Cigarette/Vaping Use Never Used 09/29/22 11:49 Thrive Assessment: Date of Thrive Assessment Date Thrive assessed 04/30/22 09/29/22 11:49 Const General: comfortable, no acute distress and alert Nutritional Appearance: obese Orientation/consciousness: patient oriented x3 Limitations: ambulation with cane HENMT Ears: external ears normal, TM's normal bilaterally and EAC's normal General nose exam: Normal external nose present and No nasal discharge present Mouth: oropharynx normal and moist mucous membranes Eyes General: appearance normal, both eyes and all related structures Neck Neck: Yes full ROM, Yes no lymphadenopathy and Yes supple Resp Effort & Inspection: normal respiratory effort and able to speak in complete sentences Auscultation: clear to auscultation bilaterally Cardio Rate: regular rate Rhythm: regular rhythm Heart sounds: S1 normal heart sound present and S2 normal heart sound present GI Palpation (GI): Soft to palpation, nontender and no masses Auscultation: normal bowel sounds Back/Spine/Pelvis Back: No back tenderness Skin General skin exam: no rashes or lesions noted Neuro General: patient oriented x3, tone normal, moves all extremities, Normal light touch and pain sensation and no focal motor deficits Cranial nerves: Yes CN's II-XII intact bilaterally Cognition (Neuro): normal cognition Extrem General: Yes no joint enlargement, Yes no clubbing, cyanosis or edema and Yes no calf tenderness Psych Appearance: grossly normal and well kempt Mental Status: mental status grossly normal Speech and movement: Normal speech and movement present Affect: normal affect Attitude: cooperative Results Reviewed Results Reviewed: ENTERED: 09/27/[address]: ORDERED: Met Prof Fast, AST, ALT, CK Total, Lipid Panel Test Result Flag Reference Site Sodium 137 135-145 mmol/L Potassium 4.0 3.3-5.1 mmol/L CL 102 96-108 mmol/L CO2 20 L 22-29 mmol/L Gap 19 12-20 BUN 17 H 9-16 mg/dL Creat 0.94 0.5-1.4 mg/dL EGFR 59 NOTE: For -[place] individuals, multiply the result by 1.210. Chronic Kidney Disease: Estimated GFR < 60 mL/min/1.73m2 Severe Kidney Disease: Estimated GFR < 15 mL/min/1.73m2 FBS 146 H 60-99 mg/dL A fasting glucose of 126 mg/dl or greater on more than one occasion is considered diagnostic of diabetes. CA 9.0 8.4-10.2 mg/dL AST (GOT) 33 H 5-31 U/L ALT (GPT) 27 0-31 U/L CK Total 50 26-140 U/L Triglyceride 171 mg/dL Desirable Triglyceride: less than 150 mg/dL Borderline High Triglyceride 150-199 mg/dL High Triglyceride: 200-499 mg/dL Very High Triglyceride: greater than or equal to 5OO mg/dL Chol 196 mg/dL Desirable Cholesterol: less than 200 mg/dL Borderline High Cholesterol: 200-239 mg/dL High Cholesterol: greater than 239 mg/dL LDL Calculated 95 mg/dl Desirable LDL: less than 100 mg/dL Near Optimal/Above Optimal LDL: 110-129 mg/dL Borderline High LDL: 130-159 mg/dL High LDL: 160-189 mg/dL Very High LDL: greater than or equal to 190 mg/dL HDL 67 mg/dL Desirable HDL: greater than 40 mg/dL Note: This HDL assay may give artificially low results in patients with liver disease. Laboratory Tests 04/30/22 09/27/22 13:45 08:16 Estimat Average Glucose 151 Hemoglobin A1c % 6.9 Urine Creatinine 97.84 Urine Microalbumin 108.0 Microalb/Creat Ratio 110.3 Assessment and Plan Assessment & Plan (1) Diabetes mellitus, without long-term current use of insulin: Code(s): E11.9 - Type 2 diabetes mellitus without complications Plan: Hemoglobin A1c at 6.9%, slightly and higher than last check. Reinforced importance of following recommended diet, and getting regular exercise. Will continue on current treatment. She is up-to-date with her a diabetes eye screen, and is up-to-date with all her vaccinations. (2) Dyslipidemia: Code(s): E78.5 - Hyperlipidemia, unspecified Plan: Reviewed recent fasting lipid profile with patient with levels within normal limits . Continue with atorvastatin 20 mg daily , in addition to adherence to low-cholesterol diet and regular exercise, at least 30 minutes 3 to 4 times a week. Advised patient to make healthy food choices, eat more fruits, vegetables, whole grains, wild caught fish and low-fat dairy. Limit amount of meat and fried or fatty food products, as well as processed foods and fast foods. Follow-up scheduled with repeat fasting lipid panel in 4 months. (3) Essential hypertension: Code(s): I10 - Essential (primary) hypertension Plan: Blood pressure at goal of less than 130/80. Continue with current medication. Reinforced importance of following a low sodium diet, getting regular exercise, and lowering stress levels. (4) Osteoarthritis of right hip: Code(s): M16.11 - Unilateral primary osteoarthritis, right hip Plan: Handicap placard completed and given to patient, copy placed in medical record Orders: Orders Alanine Aminotransferase 01/21/23 E11.9 - Type 2 diabetes mellitus without complications, E78.5 - Hyperlipidemia, unspecified, I10 - Essential (primary) hypertension Aspartate Amino Transferase 01/21/23 E11.9 - Type 2 diabetes mellitus without complications, E78.5 - Hyperlipidemia, unspecified, I10 - Essential (primary) hypertension Basic Metabolic Panel Fasting 01/21/23 E11.9 - Type 2 diabetes mellitus without complications, E78.5 - Hyperlipidemia, unspecified, I10 - Essential (primary) hypertension Hemoglobin A1c 01/21/23 E11.9 - Type 2 diabetes mellitus without complications, E78.5 - Hyperlipidemia, unspecified, I10 - Essential (primary) hypertension Lipid Panel 01/21/23 E11.9 - Type 2 diabetes mellitus without complications, E78.5 - Hyperlipidemia, unspecified, I10 - Essential (primary) hypertension Medications: Changed From metformin 500 mg PO BID 60 tabs 5RF E11.65 - Type 2 diabetes mellitus with hyperglycemia To metformin 500 mg PO BID 3 months 180 tabs 3RF E11.65 - Type 2 diabetes mellitus with hyperglycemia Refilled diltiazem HCl ER (DILT-XR) 180 mg PO DAILY 90 caps 3RF atorvastatin 20 mg PO BEDTIME 90 tabs 3RF E11.9 - Type 2 diabetes mellitus without complications, E78.5 - Hyperlipidemia, unspecified lisinopril 5 mg PO DAILY 90 tabs 3RF Coding Level of Care Code Est Pt Level 4 (18263) Diagnoses Diabetes mellitus, without long-term current use of insulin E11.9 Dyslipidemia E78.5 Essential hypertension I10 Osteoarthritis of right hip M16.11
== END 2022-09-29 12:56 | disposition home or self-care (01) ==
PROVIDERS: Visit Provider Internal Medicine
DX: E11.9 Type 2 diabetes mellitus without complications (principal); E78.5 Hyperlipidemia, unspecified; I10 Essential (primary) hypertension; M16.11 Unilateral primary osteoarthritis, right hip
CPT/HCPCS: 99214

== ENCOUNTER 2023-02-01 12:54 | Outpatient (AMB) | payer MEDICARE, OTHER, SELFPAY ==
--- NOTE | 2023-02-01 13:47 | A.OFFPC_ITS ---
Vital Signs 02/01/23 13:48 Height 5 ft 2 in Weight 182 lb 2 oz BMI 33.3 BP 120/68 Blood Pressure Location Rt brachial Position Sitting Pulse 98 Pulse Source Pulse Oximeter Pulse Oximetry (%) 95 Oxygen Delivery Method Room Air Intake Visit Reasons: Annual PE Intake Note: Pt is here for her Annual PE pt has not been able to do her labs due to personal issues Allergies ibuprofen [IBUPROFEN] Allergy (Severe, Verified 02/01/23 13:54) HIVES, vomiting blood, itchiness metronidazole [Flagyl] Allergy (Severe, Verified 02/01/23 13:54) hives, itching morphine [MORPHINE] Allergy (Severe, Verified 02/01/23 13:54) JITTERY, tremors, hives, rash adhesive tape [Adhesive Tape] Allergy (Mild, Verified 02/01/23 13:54) RASH flaxseed [FLAXSEED] Allergy (Mild, Verified 02/01/23 13:54) FELT JITTERY latex [Latex] Allergy (Mild, Verified 02/01/23 13:54) RASH Penicillins Allergy (Mild, Verified 02/01/23 13:54) RASH/THROAT SWELLING oxycodone Allergy (Verified 02/01/23 13:54) Hives Heparin (Porcine) in NaCl Allergy (Severe, Uncoded 02/01/23 13:54) hives, itchy Medication List - Last Reconciled 02/01/23 by Nikki Alberto MD atorvastatin 20 mg PO BEDTIME blood sugar diagnostic (FreeStyle Lite Strips) Test glucose twice day and as needed. diltiazem HCl ER (DILT-XR) 180 mg PO DAILY gabapentin 300 mg PO DAILY lancets (FreeStyle Lancets) Test blood sugar twice a day and as needed lisinopril 5 mg PO DAILY metformin 500 mg PO BID 3 months omeprazole 20 mg PO DAILY@0630 Tobacco use date assessed: 02/01/23 Fall risk assessment: No Falls in past year Last assessed Fall Risk: 02/01/23 Dental Screening Dental Screen Date: 02/01/23 Did you have a dental visit in the last 12 months?: No Did you have a dental problem in the last 6 months where you did not have access to dental care?: No Was dental information given to patient?: No HPI Annual PE HPI Details 67-year-old lady here today for physical exam. She has hypertension, history of lobular breast cancer, dyslipidemia, GERD, osteoarthritis status post total right hip arthroplasty earlier this year, currently without any complaints at present time. She is overdue for screening mammogram, last done in 2020, and is overdue for her repeat bone density scan which showed osteopenia in left femoral neck in 2018 . She is also overdue for screening colonoscopy, due again last year due to presence of tubular adenoma removed in colonoscopy done by Dr. Mathew in [facility] Medical History (Updated 02/01/23 @ 14:19 by Nikki Alberto MD) Smoking greater than 40 pack years Symptomatic postsurgical menopause Osteopenia of left femoral neck History of adenomatous polyp of colon Fracture of distal end of right fibula Diabetes mellitus, without long-term current use of insulin Anemia Osteoarthritis of right hip Seasonal allergies PONV (postoperative nausea and vomiting) Left bundle branch block (LBBB) Pre-operative cardiovascular examination Arthritis of right hip Cystocele Diabetes mellitus with hyperglycemia, without long-term current use of insulin Prolapse of female pelvic organs Wrist fracture, right Type 2 diabetes mellitus without complication, with no history of insulin use Essential hypertension Glaucoma Posterior vitreous detachment Pulmonary nodule, right Lobular breast cancer Dyslipidemia GERD (gastroesophageal reflux disease) Surgical History S/P total right hip arthroplasty S/P total right hip arthroplasty History of carpal tunnel release S/P breast lumpectomy H/O colectomy History of tubal ligation History of appendectomy Hx of colonoscopy Family History Father Diabetes mellitus Sister Lung cancer Social History Household Members: None Housing: House Housing Other:: Trailer Are you a primary long term care pharmacist to a significant other at home: No Do you presently have visiting nurse or other home services: No Alcohol intake: current Alcohol intake frequency: does not drink Comment: aware of trip hazard Patient Tobacco Use Status: Current everyday Tobacco user Tobacco use type: Cigarette Cigarettes Per Day: 15 Years Smoked: 40 e-Cigarette/Vaping Use: Never Used Second Hand Smoke Exposure: Yes service: No Current occupational status: retired Gender identity: Female Cognitive needs: No Hearing needs: No Vision needs: Yes Questionnaire Thrive Questionnaire Date Thrive assessed: 04/30/22 ARIS-7 AMB Questionnaire ARIS-7 Date ARIS - 7 assessed: 04/30/22 Source: Developed by Drs. Nelson Sommers, Meredith Avila, Keon Coronado and colleagues, with an educational selene from [employer]. Review of Systems Const Denies fatigue, Denies fever(s), Denies headache(s) and Denies weakness Eyes Denies change in vision and Denies itchy eyes ENT Denies dizziness, Denies headache(s), Denies nasal congestion, Denies nasal discharge and Denies sore throat Card Denies chest pain, Denies lightheadedness, Denies palpitations and Denies dyspnea Resp Denies chest congestion, Denies cough, Denies dyspnea and Denies wheezing GI Denies abdominal pain, Denies change in bowel habits and Denies heartburn Denies hematuria, Denies urinary frequency, Denies dysuria and Denies urinary urgency Musc Reports as per HPI Skin/Breast Denies breast pain, Denies breast mass, Denies lesions and Denies rash Neuro Denies dizziness, Denies headache(s) and Denies weakness Psych Reports no additional complaints Endo Denies fatigue, Denies polydipsia, Denies polyuria and Denies palpitations Nam/Lymph Denies easy bruising Aller/Immun Denies itchy eyes, Denies seasonal rhinorrhea and Denies wheezing Physical exam (Primary Care) Vital Signs: Last Vital Signs Pulse 98 02/01/23 13:48 BP 120/68 02/01/23 13:48 Pulse Ox 95 02/01/23 13:48 Oxygen Delivery Method Room Air 02/01/23 13:48 BMI result Body Mass Index 33.3 Tobacco/Smoking Status: Tobacco use Status Tobacco use date assessed 02/01/23 02/01/23 13:54 Patient Tobacco Use Status Current everyday Tobacco 02/01/23 13:47 Tobacco use type Cigarette 02/01/23 13:47 e-Cigarette/Vaping Use Never Used 02/01/23 13:47 Thrive Assessment: Date of Thrive Assessment Date Thrive assessed 04/30/22 02/01/23 13:47 Const General: comfortable, no acute distress and alert Nutritional Appearance: obese Orientation/consciousness: patient oriented x3 Limitations: ambulation with cane HENMT Ears: external ears normal, TM's normal bilaterally and EAC's normal General nose exam: Normal external nose present and No nasal discharge present Mouth: oropharynx normal and moist mucous membranes Eyes General: appearance normal, both eyes and all related structures Neck Neck: Yes full ROM, Yes no lymphadenopathy and Yes supple Chest Breast/axilla palpation: normal palpation of the breasts Resp Effort & Inspection: normal respiratory effort and able to speak in complete sentences Auscultation: clear to auscultation bilaterally Cardio Rate: regular rate Rhythm: regular rhythm Heart sounds: S1 normal heart sound present and S2 normal heart sound present GI Inspection: Yes other (Diastasis recti) Palpation (GI): Soft to palpation, nontender and no masses Auscultation: normal bowel sounds Back/Spine/Pelvis Back: No back tenderness Skin General skin exam: no rashes or lesions noted Neuro General: patient oriented x3, tone normal, moves all extremities, Normal light touch and pain sensation and no focal motor deficits Cranial nerves: Yes CN's II-XII intact bilaterally Cognition (Neuro): normal cognition Extrem General: Yes no joint enlargement, Yes no clubbing, cyanosis or edema and Yes no calf tenderness Psych Appearance: grossly normal and well kempt Mental Status: mental status grossly normal Speech and movement: Normal speech and movement present Affect: normal affect Attitude: cooperative Immunizations pneumoc 20-scarlett conj-dip cr(PF) 0.5 mL IM syringe Performing Provider: Nikki Alberto MD Performing Location: [facility] Administered by: Tasha Castro CMA on 02/01/23 14:30 Dose Route Admin Location Dispensed Lot Number Expiration Date [facility] [employer]ens Technician 0.5 mL IM Right Deltoid 0.5 mL [id number] 09/20/23 [employer] VIS Given Date VIS Provided VIS Publication Date 02/01/23 Single Vaccine 21 Eligibility Eligibility Date Funding Source Not [facility] Eligible 02/01/23 Private Assessment and Plan Assessment & Plan (1) Annual visit for general adult medical examination with abnormal findings: Code(s): Z00.01 - Encounter for general adult medical examination with abnormal findings Plan: Advised to get her fasting labs done, already ordered. Recommended dental visit every 6 months and yearly eye exams for diabetes retinopathy screening. Take adequate calcium in diet and vitamin-D 3 at 2000 IU per cap once a day, in addition to weight-bearing exercises to help maintain good muscle tone and weight control. Strongly encouraged to stop smoking. Instructed to do self- breast exam, and is overdue to get her yearly mammogram, and bone density scan done. She is also overdue to get her screening colonoscopy last done in 2016 with removal of a tubular adenoma, to be repeated supposedly in 5 years. Patient reminded to get her COVID booster, due for her yearly flu shot, patient states that she got it already in [place], and shingles vaccination. Prevnar 20 given today. Patient contracted COVID October 2022 does not want to get booster anymore (2) Essential hypertension: Code(s): I10 - Essential (primary) hypertension Plan: Blood pressure at goal of less than 130/80. Continue with current medication. Reinforced importance of following a low sodium diet, getting regular exercise, and lowering stress levels. (3) GERD (gastroesophageal reflux disease): Code(s): K21.9 - Gastro-esophageal reflux disease without esophagitis (4) Dyslipidemia: Code(s): E78.5 - Hyperlipidemia, unspecified Plan: Continue with atorvastatin 20 mg daily, reminded to get her fasting lipid levels done (5) Diabetes mellitus, without long-term current use of insulin: Code(s): E11.9 - Type 2 diabetes mellitus without complications Plan: Continued on metformin 500 mg 1 tablet twice a day advised to get fasting labs done. Wanted to get her diabetes retinopathy screening yearly Prevnar 20 given today (6) History of adenomatous polyp of colon: Comment: Removed in [address] Mathew Code(s): Z86.010 - Personal history of colonic polyps Plan: GI consult obtained patient overdue for her screening colonoscopy with history of tubular adenoma removed on previous colonoscopy (7) Pulmonary nodule, right: Comment: Followed by Dr. Thompson Code(s): R91.1 - Solitary pulmonary nodule Plan: Referred to thoracic surgery for further evaluation of pulmonary nodule. Previously was being followed by Dr. 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 XR DEXA axial skeleton 02/01/23 Z12.31 - Encounter for screening mammogram for malignant neoplasm of breast, M85.852 - Other specified disorders of bone density and structure, left thigh, 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 Pneumococcal 20 Immunization 02/01/23 Z23 - Encounter for immunization Referrals Thoracic Surgery Referral R91.1 - Solitary pulmonary nodule, F17.210 - Nicotine dependence, cigarettes, uncomplicated Gastroenterology Referral Z86.010 - Personal history of colonic polyps Coding Level of Care Code Est Pt Prev Care >65y(86215) Diagnoses Annual visit for general adult medical examination with abnormal findings Z00.01 Essential hypertension I10 GERD (gastroesophageal reflux disease) K21.9 Dyslipidemia E78.5 Diabetes mellitus, without long-term current use of insulin E11.9 History of adenomatous polyp of colon Z86.010 Pulmonary nodule, right R91.1 Smoking greater than 40 pack years F17.210
[2023-02-01 13:48] VITALS: BP 120/68; PULSE 98; O2SAT 95; BMI 33.3
== END 2023-02-01 14:56 | disposition home or self-care (01) ==
PROVIDERS: PCP Internal Medicine; Visit Provider Internal Medicine
DX: Z23 Encounter for immunization (principal)
CPT/HCPCS: 90471; 90677; 99397